=== PATIENT | male | born 1950 | race Caucasian/White ===

== ENCOUNTER 2018-12-18 12:03 | Observation (INO) | payer BC, MEDICARE ==
[2018-12-18] MEDS ORDERED: Albuterol/Ipratropium NEB.SOL* Albuterol 2.5 MG/Ipratropium 0.5 MG 3 ML INH ONE (12:08)
[2018-12-18] MEDS ORDERED: Furosemide IV* 10 MG/ML VIAL (40 MG) IV SLOW PU ONE (12:08)
--- NOTE | 2018-12-18 12:13 | ED ---
Shortness of Breath - HPI Summary HPI Summary: Pt is a 68 y/o male brought in by EMS who presents to the ED c/o SOB. For the past few days hes c/o cough, SOB, and fever. This morning the SOB became worse and he became near-syncopal. Upon EMS arrival pts O2 sat was 94% on room air, he had significant rales, and he had a fever of 100.8 degrees F. Pt was given 1 NTG and was put on CPAP which alleviated his SOB. He also notes hes had edema for the past few months. Pt denies any CP. He states hes been having issues with his health since August 2018. Pt is a smoker. PMHx HTN, HLD, [place], cardiac stents, borderline COPD. He takes daily ASA. - History of Current Complaint Hx Obtained From: Patient, EMS Onset/Duration: Gradual Onset, Lasting Days - 2-3, Worse Since Timing: Constant Dyspnea At: Rest Aggrevating Factors: Nothing Alleviating Factors: EMS Tx - CPAP Associated Signs & Symptoms: Cough (Nonproductive), Fever, Edema - Allergy/Home Medications Allergies/Adverse Reactions: Allergies Allergy/AdvReac Type Severity Reaction Status Date / Time aspirin Allergy Vomiting Verified 12/18/18 12:14 Home Medications: Home Medications Carvedilol TAB* [Coreg TAB*] 3.125 mg PO BID 12/18/18 [History Confirmed ] Clopidogrel TAB* [Plavix TAB*] 75 mg PO DAILY 12/18/18 [History Confirmed ] Finasteride TAB* [Proscar TAB*] 5 mg PO DAILY 12/18/18 [History Confirmed ] Furosemide TAB* [Lasix TAB*] 40 mg PO DAILY 12/18/18 [History Confirmed 12/18/18 ] Nitroglycerin TAB 0.4 MG* 0.4 mg SL Q5M PRN 12/18/18 [History Confirmed 12/18/18 ] Sodium Bicarbonate (ANTACID)* 650 mg PO BID 12/18/18 [History Confirmed 12/18/18 ] Tamsulosin CAP* [Flomax CAP*] 0.8 mg PO DAILY 12/18/18 [History Confirmed ] amLODIPine TAB* [Norvasc 5 mg TAB*] 5 mg PO DAILY 12/18/18 [History Confirmed ] metOLazone [Metolazone] 2.5 mg PO DAILY 12/18/18 [History Confirmed 12/18/18] PMH/Surg Hx/FS Hx/Imm Hx Endocrine/Hematology History: Denies: Hx Diabetes Cardiovascular History: Reports: Hx Hypercholesterolemia, Hx Hypertension, Hx Myocardial Infarction Denies: Hx Congestive Heart Failure Respiratory History: Reports: Hx Chronic Obstructive Pulmonary Disease (COPD) - borderline GI History: Reports: Hx Gastroesophageal Reflux Disease Psychiatric History: Reports: Hx Anxiety - Surgical History Surgery Procedure, Year, and Place: cardiac stents Infectious Disease History: No Infectious Disease History: Denies: Traveled Outside the [place] in Last 30 Days - Family History Known Family History: Positive: Cardiac Disease - [place], Hypertension, Other - [place] - Social History Alcohol Use: None Alcohol Amount: recovering alcoholic Hx Substance Use: No Substance Use Type: Reports: None Hx Tobacco Use: Yes Smoking Status (MU): Current Every Day Smoker Review of Systems Positive: Fever Negative: Chest Pain Positive: Shortness Of Breath, Cough Positive: Edema Positive: Syncope - near All Other Systems Reviewed And Are Negative: Yes Physical Exam - Summary Physical Exam Summary: Appearance: well appearing, no pain distress Skin: warm, dry, reflects adequate perfusion Head/face: normal Eyes: EOMI, VIRGIL ENT: mucous membranes moist Neck: supple, non-tender Respiratory: expiratory wheezes, breath sounds globally diminished, mild- moderate respiratory distress Cardiovascular: regular rate with occasional irregularities of rhythm, pulses symmetrical, 2+ BLE pitting edema, edema of skin of abdomen Abdomen: non-tender, soft Bowel Sounds: present Musculoskeletal: normal, strength/ROM intact Neuro: normal, sensory motor intact, A&Ox3 Triage Information Reviewed: Yes Vital Signs On Initial Exam: Initial Vitals Temp Pulse Resp BP Pulse Ox 99.8 F 95 25 158/111 94 12/18/18 12:04 12/18/18 12:04 12/18/18 12:04 12/18/18 12:04 12/18/18 12:04 Vital Signs Reviewed: Yes Diagnostics - Vital Signs Vital Signs Temp Pulse Resp BP Pulse Ox 12/18/18 12:04 99.8 F 95 25 158/111 94 - Laboratory Result Diagrams: 12/18/18 12:47 12/18/18 12:47 Lab Statement: Any lab studies that have been ordered have been reviewed, and results considered in the medical decision making process. - Radiology CXR Radiology Interpretation Completed By: Radiologist Summary of Radiographic Findings: Density obscuring the right lower lung and to a lesser extent the left lung base could be pneumonia in the correct clinical setting. I recommend a follow-up chest x-ray after an appropriate course of therapy to ascertain resolution. ED physician reviewed radiology report. - CT Chest CT CT Interpretation Completed By: Radiologist Summary of CT Findings: 1. Multifocal infiltrates throughout the lungs more severely affecting the right than the left. Differential diagnosis includes multifocal pneumonia, pneumonitis or inflammatory lung disease. 2. Partially visualized upper abdominal ascites including perihepatic and perisplenic fluid. ED physician reviewed radiology report. - EKG 12:08 Cardiac Rate: NL - 91 bpm EKG Rhythm: Sinus Rhythm ST Segment: Normal Summary of EKG Findings: Nl axis, prolonged QT interval Re-Evaluation - Re-Evaluation First Eval Re-Evaluation Time: 13:07 Change: Improved Comment: Pt is now feeling better. Course/Dx - Course Course Of Treatment: Nurse's notes reviewed. Patient with history of CHF, COPD presents with respiratory difficulty and fever. He has coarse breath sounds with wheezes. He improved with outpatient CPAP provided by EMS. This was discontinued in favor of high velocity nasal insufflation by Vapotherm CPAP. His respiratory work significantly improved on this. A x-ray showed possibility of infiltrate in the right base and this was confirmed on CT of the chest. There is no mass in the chest or significant CHF. He does have significant fluid accumulation in his soft tissues throughout the body. Steroids were also given in addition to antibiotics given mixed bag COPD. - Diagnoses Differential Diagnosis/HQI/PQRI: Positive: COPD Exacerbation, Pneumonia, Pulmonary Embolism, Pulmonary Edema Provider Diagnoses: Acute pneumonia, Chronic renal failure, Respiratory failure, Anasarca - Physician Notifications Discussed Care of Patient With: Ken Puri Time Discussed With Above Provider: 13:15 Instructed by Provider To: Other - Dr. Puri recommends a chest CT. At 14:18 he accepts pt for admission. - Critical Care Time Critical Care Time: 30-74 min - Critical care time is exclusive of separately billable procedures Discharge - Sign-Out/Discharge Documenting (check all that apply): Patient Departure - Admit Patient Received Moderate/Deep Sedation with Procedure: No - Discharge Plan Condition: Guarded Disposition: ADMITTED TO [facility] Referrals: No Primary Care Phys,NOPCP [Primary Care Provider] - - Billing Disposition and Condition Condition: GUARDED Disposition: Admitted to [facility] - Attestation Statements Document Initiated by [place]: Yes Documenting Scribe: Kathryn Chambers Provider For Whom [place] is Documenting (Include Credential): Sarath Gandhi MD Scribe Attestation: Kathryn Moore, scribed for Sarath Gandhi MD on 12/18/18 at 1511. Scribe Documentation Reviewed: Yes Provider Attestation: The documentation as recorded by the Kathryn rodgers accurately reflects the service I personally performed and the decisions made by , Sarath Gandhi MD Status of Scribe Document: Viewed
[2018-12-18 12:57] LABS: Hematocrit 29 % (36-46); Hemoglobin 9.7 g/dL (14.0-18.0); Mean Corpuscular HGB Conc 34 g/dL (31-36); Mean Corpuscular Hemoglobin 33 pg (27-31); Mean Corpuscular Volume 97 fL (80-94); Red Blood Count 2.97 10^6 /uL (4.18-5.48); Red Cell Distribution Width 15 % (10.5-15); White Blood Count 7.1 10^3/uL (3.5-10.8)
[2018-12-18 13:03] LABS: INR 0.8 (0.77-1.02)
[2018-12-18 13:05] LABS: Influenza A Molecular NEGATIVE (Negative); Influenza B Molecular NEGATIVE (Negative)
[2018-12-18 13:17] LABS: ALT 16 U/L (7-52); AST 17 U/L (13-39); Albumin/Globulin Ratio 1.4 (1-3); Alkaline Phosphatase 68 U/L (34-104); Anion Gap 9 mmol/L (2-11); BUN/Creatinine Ratio 13.5 (8-20); Blood Urea Nitrogen 65 mg/dL (6-24); C Reactive Protein 101.62 mg/L (<8.01); CO2 Carbon Dioxide 20 mmol/L (22-32); Calcium 7.9 mg/dL (8.6-10.3); Chloride 110 mmol/L (101-111); EGFR African American 14.6 (>60); EGFR Non-African American 12.1 (>60); Globulin 2.1 g/dL (2-4); Glucose 72 mg/dL (70-100); Potassium 4.3 mmol/L (3.5-5.0); Sodium 139 mmol/L (135-145); Total Protein 5.1 g/dL (6.4-8.9)
[2018-12-18] MEDS ORDERED: methylPREDNISolone 125 MG* 2 ML VIAL IV ONE (13:17)
[2018-12-18 13:20] LABS: ABS Basophils 0 10^3/ul (0-0.2); ABS Eosinophils 0.1 10^3/ul (0-0.6); ABS Lymphocytes 0.8 10^3/ul (1.0-4.8); ABS Monocytes 0.5 10^3/ul (0-0.8); ABS Neutrophils 5.7 10^3/ul (1.5-7.7); ABS Nucleated RBC 0 10^3/ul; Eosinophil % 1.5 %; Lymphocyte % 11.1 %; Mean Platelet Volume 9.7 fL (7.4-10.4); Nucleated Red Blood Cells % 0; Platelet Count 86 10^3/uL (150-450)
[2018-12-18 13:28] LABS: Troponin I 0.18 ng/mL (<0.04)
[2018-12-18] MEDS ORDERED: Azithromycin 500 mg/250 ml 500 MG/250 ML PREMIX.SET IVPB ONE (13:33)
[2018-12-18] MEDS ORDERED: cefTRIAXone(*) 1 GM in NS 0.9% 50 ML* 50 ML IVPB ONE (13:33)
[2018-12-18] MEDS ORDERED: Nitroglycerin TAB 0.4 MG* 0.4 MG TAB SL PRN (15:14)
[2018-12-18] MEDS ORDERED: Albuterol/Ipratropium NEB.SOL* Albuterol 2.5 MG/Ipratropium 0.5 MG 3 ML INH PRN (15:30)
[2018-12-18] MEDS ORDERED: Spiriva Inhaler DEVICE* 1 EACH DEVICE INH SCH (16:00)
[2018-12-18] MEDS ORDERED: Furosemide IV* 10 MG/ML 10 ML VIAL (100 MG) IV ONE ×2 (16:30→20:00)
[2018-12-18 16:34] LABS: Troponin I 0.23 ng/mL (<0.04)
[2018-12-18 16:42] LABS: Magnesium 1.9 mg/dL (1.9-2.7); Phosphorus 4.5 mg/dL (2.5-5.0)
[2018-12-18 16:54] LABS: % Iron Saturation 8 % (15-55); Iron 18 ug/dL (50-212); Rheumatoid Factor 44 IU/mL (<15); Total Iron Binding Capacity 217 mcg/dL (250-450); Transferrin 155 mg/dL (203-362)
[2018-12-18] MEDS ORDERED: Tiotropium CAP.INH* CAP.INH/18 MCG (USE ORDER SET !) INH SCH (17:00)
[2018-12-18 17:14] LABS: Ferritin 511.1 ng/mL (24-336)
[2018-12-18 18:27] LABS: Urine Appearance Clear; Urine Bacteria Absent (Absent); Urine Bilirubin Negative (Negative); Urine Blood 2+ (Negative); Urine Color Straw; Urine Glucose Negative (Negative); Urine Ketones Negative (Negative); Urine Nitrite Negative (Negative); Urine Protein 2+(100 mg/dL) (Negative); Urine Red Blood Cell 3+(>10/hpf) (Absent); Urine Specific Gravity 1.009 (1.010-1.030); Urine Squamous Epithelial Cell Present (Absent); Urine Urobilinogen Negative (Negative); Urine White Blood Cell Absent (Absent)
[2018-12-18 18:35] LABS: Urine Creatinine Concentration 34.15 mg/dL
[2018-12-18 20:35] LABS: Troponin I 0.22 ng/mL (<0.04)
[2018-12-18] MEDS: Sodium Bicarbonate (ANTACID)* 650 MG TAB PO SCH (20:53)
[2018-12-18] MEDS: Heparin VIAL(*) 5000 UNITS/ML VIAL (FIVE THOUSAND) SUBCUT SCH (20:53)
[2018-12-18] MEDS: Nicotine PATCH 14 MG/24 HR* PATCH TRANSDERM SCH (20:53)
[2018-12-18] MEDS ORDERED: Carvedilol TAB* 3.125 MG PO SCH (21:00)
[2018-12-19] MEDS: Mometasone/Formoter 200/5 MDI INH SCH ×2 (00:24→08:17)
--- NOTE | 2018-12-19 00:41 | HP ---
HISTORY AND PHYSICAL: DATE OF ADMISSION: 12/18/18 ADMITTING PROVIDER: Ken Puri MD PRIMARY CARE PHYSICIAN: Dr. Greg Acuña. OUTPATIENT SENIOR WEB SERVICES DEVELOPER: Dr. Geovanna Jain. CHIEF COMPLAINT: Acute on chronic shortness of breath, weakness, insomnia, abdominal pain from dry cough. HISTORY OF PRESENT ILLNESS: Benja French is a 68-year-old male with past medical history of CAD, status post 3 RCA stents in May 2018; chronic kidney disease, stage 4, progressive to stage 5 as of 1 month ago; claudication ; peripheral vascular disease, status post fem-fem bypass left leg stent; renal artery stenosis, status post stent and angiography; current smoker of greater than 50 pack years; GERD; hypertension; heart failure with preserved ejection fraction; COPD. He notably presented to [facility] Emergency Room on 11/16/18 with several weeks of diarrhea worsening of edema, shortness of breath, was found to have worsening kidney function of a creatinine 4.4 from his prior base of 2 to 2.2. He was admitted to the hospital, then left AMA 3 days later on 05/02 with undetermined etiology of his worsening kidney function. He did reportedly have negative ANCAs, low C3, normal C4. There was recommendation for possible renal biopsy. He states he is followed up with Dr. Jain and there has been discussion of his possible need for dialysis, which he does state that he would pursue if necessary, but he is somewhat fed up with the [facility] system having spent he states 10 hours in the emergency room before been seen by a provider last time. He was scheduled actually to see Dr. Jain on 12/20/18. His chief complaint now is progressive shortness of breath, weakness, a dry cough that is causing him some abdominal discomfort, abdominal bloating, worsening lower extremity edema. He states he has been on metolazone for since last week, but has not noticed a difference, he is still having poor urinary output and progressive edema and shortness of breath. He denies any chest pain, fevers or chills. He states he has gained about 20 pounds in the last week. He has not seen his lung doctor in few years and had PFTs around that time as well. He was placed up on CPAP in the field, initially respiratory was recorded as 40 with improvement of this breathing and initial evaluation in the [facility] Emergency Room has included elevated BNP of 857, troponin of 0.18, creatinine of 4.82. A chest x-ray concerning for possible density obscuring the right lower lung and to a lesser extent of the left lung base. It could be a pneumonia in the correct clinical setting, therefore he was started on ceftriaxone and azithromycin. He was given 40 mg of IV Lasix. He has been placed on the Vapotherm 35 L at 28% FiO2 with some improvement in the symptoms, though clearly dyspneic with any minimal exertion on evaluation. VBG was 7.35, pCO2 of 38, pO2 of less than 38, bicarb of 19.7. His EKG demonstrated no acute ischemic changes. No prior to compare. PACs, normal sinus rhythm, normal axis, no ST elevations depressions, no T-wave inversions. Temperature was 99.8 and no leukocytosis. CRP was elevated at 101.6. Flu swabs were negative. He was referred to hospitalist service for acute hypoxic respiratory failure. PAST MEDICAL HISTORY: COPD, current smoker of 50 pack years; CAD, status post 3 stents to the RCA in May 2018; peripheral vascular disease, claudication , status post fem-fem bypass, a known left leg stent, a renal artery stent and need for further angioplasty; GERD; hypertension; chronic kidney disease, stage 4, but over the last month more like stage 5; heart failure with reduced ejection fraction. MEDICATIONS: Include: 1. Metolazone 2.5 mg p.o. daily (for the last week). 2. Finasteride 5 mg p.o. daily. 3. Tamsulosin 0.9 mg p.o. daily. 4. Amlodipine 5 mg p.o. daily. 5. Plavix 75 mg p.o. daily. 6. Furosemide 40 mg p.o. daily. 7. Carvedilol 3.125 mg p.o. b.i.d. 8. Nitroglycerin 0.4 mg sublingual q.5 minutes p.r.n. 9. Albuterol nebulizer and HFA inhalers. 10. Sodium bicarb 650 mg p.o. b.i.d. ALLERGIES: FULL DOSE ASPIRIN gives him some GI, but he tolerates his baby aspirin. FAMILY HISTORY: His mother had brain cancer. Father with myocardial infarction. Brother with coronary bypass surgery, also his sister. SOCIAL HISTORY: The patient is a current smoker over 50 years, currently 1 pack per day. 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 Denies drug use. Medical surrogate is his daughter, Peg Lund. He desires to be a full code. REVIEW OF SYSTEMS: A complete 14-point review of systems is negative except as per HPI. He denies any blood in the stool, headaches. He has had a colonoscopy in the past approximately 4 years ago without concerning findings. He reports this was at [facility]. PHYSICAL EXAMINATION GENERAL APPEARANCE: Some respiratory distress with any minimal exertion, in no acute pain. VITAL SIGNS: Temperature 99.8; pulse rate 92; respiratory rate initially 25, in the field it was 40; satting 94% on 35 L a minute, FiO2 28%; blood pressure initially 158/111, currently 158/108. HEENT: Normocephalic, atraumatic. Pupils equally round and reactive to light. Extraocular motions intact. No scleral icterus. Moist mucous membranes. NECK: Supple, no cervical lymphadenopathy. LUNGS: Without wheezing or rhonchi, slightly diminished sounds diffusely. CARDIOVASCULAR: Regular rate and rhythm. No murmurs, rubs or gallops. ABDOMEN: Distended with some abdominal wall anasarca. No rebound. No guarding. Nontender. Negative Carlos's sign. EXTREMITIES: 2 to 3 + pitting edema bilaterally, pulses intact. NEUROLOGIC: Cranial nerves II through XII grossly intact. Moves all extremities. Strength and sensation is intact. SKIN: Tattoos, some diffuse ecchymosis on the arms. DIAGNOSTIC STUDIES/LAB DATA: White count 7.1, hemoglobin 9.7, hematocrit 29, platelets 86, INR 2.8. VBG; pH 7.35, pCO2 of 38, bicarb 19.7. Sodium 139, potassium 4.3, chloride 110, carbon dioxide 20, BUN 65, creatinine 4.82, glucose 72, lactic acid 1.6, calcium 7.9, total bili 0.8, AST 17, ALT 16, alk phos 68, troponin 0.18. CRP 101.6. BNP 857, albumin 3.0, influenza A and B negative. Imaging: Chest x-ray demonstrated density obscuring the right lower lung and to a lesser extent the left lung base, could be pneumonia in the correct clinical setting. Recommend to follow up chest x-ray after appropriate course of therapy to ascertain resolution. EKG demonstrated a normal sinus rhythm, PACs, normal axis, normal intervals, no ST elevations or depressions, heart rate 91. ASSESSMENT AND PLAN: Benja French is a 68-year-old male with past history of vasculopathies including coronary artery disease, status post right coronary artery stents recently; claudication; peripheral vascular disease; renal artery stenosis, status post stents; chronic obstructive pulmonary disease with current and longstanding smoking greater than 50 years; hypertension; worsening kidney function over at least the last month, presenting with worsening edema, shortness of breath, belly distention, evidence of anasarca and volume overload on exam. A chest x-ray was inability to exclude a pneumonia, although he denies any fevers, chills, and his cough is nonproductive. I suspect the majority of his problems are his renal failure of undetermined etiology and we will try to obtain records from Dr. Geovanna Jain, who he had been scheduled to see on 12/20/18 and there had been some discussion about possible need for dialysis, his discharge summary from last month indicates a possible need for renal biopsy. Reportedly, his workup has included some negative ANCA test, a low C3 and a normal C4 complement levels. I have discussed the case with Dr. Greg Russo, who will see the patient in consultation tomorrow, who recommends increasing his diuretic dose to 120 mg given his degree of renal dysfunction. I am adding on phosphorus and magnesium levels. Continue him on the sodium bicarb for now. Likely will potentially need metolazone supplementation. We will try to wean him off supplemental oxygen as able. He may need consideration for dialysis in the coming days to weeks without improvement in his symptoms. For his inability to have rule out on chest x-ray pulmonary pneumonia infiltrates, we will add on Strep pneumoniae antigen, Legionella antigen, sputum culture, follow up blood cultures, continue ceftriaxone and azithromycin. For his chronic obstructive pulmonary disease, we will give him a nicotine patch and start him on albuterol inhalers q.4 hours p.r.n., he is status post 125 mg Solu- Medrol in the ED, continue 40 mg IV q.12 hours. He does not sound particularly a bronchospastic on exam and he is not currently wheezing, although he did get the Solu-Medrol and albuterol already. I am starting Spiriva and Dulera. It will be interesting they know his pulmonary function test from 2 to 3 years ago, has not seen a lung doctor in that time, obviously smoking cessation would be critical to his ability stay out of the hospital. For his elevated troponin, we are going to continue to do that q.4 hours. He has stayed chest pain free with no ischemic changes. His degree of kidney dysfunction is likely contributing to that level. We will keep him on telemetry. For DVT prophylaxis, heparin 5000 mg t.i.d. For his hypertension and coronary artery disease history, continue aspirin, Plavix and is carvedilol 3.125 mg p.o. b.i.d., amlodipine 5 mg daily. For his benign prostatic hyperplasia, continue his tamsulosin and Proscar. He can eat heart healthy, nephro diet. He is a full code. His medical surrogate is daughter, Peg Lund. [id number]/[facility] #: [id number] JAY
[2018-12-19] MEDS: Heparin VIAL(*) 5000 UNITS/ML VIAL (FIVE THOUSAND) SUBCUT SCH ×2 (05:52→14:41)
[2018-12-19 06:14] LABS: ABS Basophils 0 10^3/ul (0-0.2); ABS Eosinophils 0 10^3/ul (0-0.6); ABS Lymphocytes 0.3 10^3/ul (1.0-4.8); ABS Monocytes 0.2 10^3/ul (0-0.8); ABS Neutrophils 5.7 10^3/ul (1.5-7.7); ABS Nucleated RBC 0 10^3/ul; Eosinophil % 0 %; Hematocrit 25 % (36-46); Hemoglobin 8.7 g/dL (14.0-18.0); Lymphocyte % 4.7 %; Mean Corpuscular HGB Conc 35 g/dL (31-36); Mean Corpuscular Hemoglobin 33 pg (27-31); Mean Corpuscular Volume 96 fL (80-94); Mean Platelet Volume 9.7 fL (7.4-10.4); Nucleated Red Blood Cells % 0.1; Platelet Count 76 10^3/uL (150-450); Red Blood Count 2.63 10^6 /uL (4.18-5.48); Red Cell Distribution Width 15 % (10.5-15); White Blood Count 6.1 10^3/uL (3.5-10.8)
[2018-12-19 06:38] LABS: EGFR African American 13.2 (>60); EGFR Non-African American 10.9 (>60); Potassium 4.3 mmol/L (3.5-5.0)
[2018-12-19] MEDS ORDERED: Metolazone TAB* 5 MG PO ONE (07:30)
[2018-12-19] MEDS ORDERED: Furosemide IV* 10 MG/ML 10 ML VIAL (100 MG) IV ONE (08:00)
[2018-12-19] MEDS ORDERED: methylPREDNISolone SOD 40 MG* 1 ML VIAL IV SCH (08:00)
[2018-12-19] MEDS ORDERED: Finasteride TAB* 5 MG PO SCH (09:00)
[2018-12-19] MEDS ORDERED: Tamsulosin CAP* 0.4 MG PO SCH (09:00)
[2018-12-19] MEDS ORDERED: Carvedilol TAB* 6.25 MG PO SCH (09:00)
[2018-12-19] MEDS ORDERED: Clopidogrel TAB* 75 MG PO SCH (09:00)
[2018-12-19] MEDS ORDERED: amLODIPine TAB* 5 MG PO SCH (09:00)
[2018-12-19] MEDS: Nicotine PATCH 14 MG/24 HR* PATCH TRANSDERM SCH (09:10)
[2018-12-19] MEDS: Sodium Bicarbonate (ANTACID)* 650 MG TAB PO SCH ×3 (09:11→14:41)
[2018-12-19] MEDS ORDERED: cefTRIAXone(*) 1 GM in NS 0.9% 50 ML* 50 ML IVPB SCH (14:00)
[2018-12-19] MEDS ORDERED: Azithromycin IV(*) 500 MG in NS 0.9% 250 ML* 250 ML IVPB SCH ×2 (15:00→17:00)
[2018-12-19 16:08] VITALS: BP 184/96
--- NOTE | 2018-12-20 01:50 | DS ---
DISCHARGE SUMMARY: DATE OF ADMISSION: 12/18/18 DATE OF DISCHARGE: 12/19/18 ADMITTING PROVIDER: Ken Puri MD PRIMARY CARE PHYSICIAN: Dr. Greg Acuña. CONSULTING SUPERVISOR ENGRAVING: Dr. Greg Russo. OUTPATIENT SUPERVISOR ENGRAVING: Dr. Geovanna Jain. CHIEF COMPLAINT: Acute shortness of breath, weakness, dry cough. PRINCIPAL DIAGNOSIS: Acute hypoxic respiratory failure in setting of volume of overload decompensated renal failure as well as evidence for Legionella and Streptococcal pneumoniae. HISTORY OF PRESENT ILLNESS AND HOSPITAL COURSE: Benja French is a 68-year-old male with past medical history of CAD, status post 3 RCA stents in May 2018; chronic kidney disease, stage 4, but progressive to stage 5 as of 1 month ago; peripheral vascular disease, status post fem-fem bypass and left leg stent ; renal artery stenosis, status post stent and angiography; current smoker of greater than 50 pack years; GERD; hypertension; heart failure with preserved ejection fraction; COPD. Please see H and P of Ken Puri for full details, but briefly, he had a recent history of presenting to [facility] on 11/16/18 with several weeks of diarrhea, worsening edema, shortness of breath, who was found to have worsening of his kidney function to creatinine of 4.4 from his previous baseline of between 2 and 2.2. He was admitted, but left against medical advice 3 days later on 11/19/18, before etiology of his worsening kidney function could be completely determined. Per that discharge summary, he did have negative ANCA studies, a low C3 complement level, normal C4 complement level. There was recommendation for possible renal biopsy. He has since followed up with Dr. Jain. There has been discussion for possible need for dialysis, which he does state that he would pursue if necessary. In fact, he has a further appointment to see Dr. Jain in 2 days on 12/20/18. He is presenting now with chief complaint of progressive shortness of breath, weakness and dry cough causing him some of the abdominal discomfort, abdominal bloating and worsening lower extremity edema. He had been taking metolazone for the last week to help supplement his Lasix 40 mg daily, but still having poor urinary output, progressive edema and progressive shortness of breath. He denied any chest pain, fevers or chills. He states he gained approximately 20 pounds in the last week. He denied ever seeing a lung doctor within the last few years. He was placed on CPAP in the field. His initial respiratory rate was 40. His followup BNP at [facility] Emergency Room is 857, troponin of 0.18, creatinine of 4.82. Chest x-ray was concerning for possible density obscuring the right lower lobe, a lesser extent of the left lung base. It can be compatible with pneumonia in the correct clinical setting. He was started on ceftriaxone and azithromycin and initially given 40 mg of IV Lasix by the emergency room. He was also placed on Vapotherm 35 L at 28% FiO2 with some improvement in the symptoms, but clearly dyspneic with any minimal exertion. He had a VBG with pH 7.35, pCO2 of 38, pO2 of less than 38, bicarbonate 19.7. EKG demonstrated no acute ischemic changes, but with PACs, normal sinus rhythm, normal axis. He was afebrile. CRP was elevated to 101.6. Flu swabs were negative. He was referred to the hospitalist service for acute hypoxic respiratory failure. Dr. Russo of Nephrology was spoken to on phone and recommended increasing his diuretic to 120mg IV (after little response to 40mg IV in ED) given his degree of kidney dysfunction. He started to put out more urine after that and was able to wean off the Vapotherm. He was admitted to a telemetry bed. His creatinine increased to 5.27 on hospital day #2. BUN went up to 74 from 65. His troponins peaked at 0.23. Additional evaluation in the emergency room included a CT of the chest, which impression was, 1. Multifocal infiltrate throughout the lungs, most severely affecting the right than the left. Differential diagnosis include multifocal pneumonia, pneumonitis or inflammatory lung disease. 2. Partially visualized upper abdominal ascites including perihepatic and sloan - stomach fluid. He had Streptococcal pneumoniae urine antigen return positive along with Legionella urine antigen return positive. Blood cultures negative x1 day. Dr. Russo met the patient next day and again recommended rechallenge with 120 mg of IV Lasix and he got metolazone 5 mg 30 minutes prior to that and was able to put out 650 cc of urine by mid day and he weaned off all supplemental oxygen , feeling much better, bloating in the stomach and abdominal wall anisarca had resolved. His pitting edema had decreased from between 2 to 3 initially to 1+. Dr. Russo recommended given his improvement and appointment the next day with his home supervisor plating and point assembly, Dr. Geovanna Jain that he be discharged to follow up with Dr. Jain with strong consideration to initiate temporary dialysis catheter placement that is expected to be needed within the next days to weeks timeframe. Of note, additional evaluation included checking rheumatoid factor, which was elevated at 44. His ESR was elevated to 61. He had JOLLY, CCP, antidouble stranded DNA, and Duarte IgG antibody drawn, but still pending. At the time of discharge, he was noted to be hypertensive 180s/90s on hospital day #2 and his Coreg was increased from 3.125 to 12.5 mg b.i.d. Of note, he had also been started on Spiriva, Dulera, given 125 mg of Solu- Medrol by the emergency room physician and given DuoNeb p.r.n. Further workup included iron panel with iron 18 mcg/dL, iron sat low at 8%, ferritin elevated at 511.1 consistent with anemia of chronic disease. Many medication changes were recommended as below. DISCHARGE MEDICATIONS: Include: 1. Amlodipine 5 mg daily. 2. Azithromycin 500 mg p.o. daily for 8 more days (total of 10-day course). 3. Carvedilol 12.5 mg p.o. b.i.d. (increased from 3.125 mg p.o. b.i.d.). 4. Plavix 75 mg daily. 5. Proscar 5 mg p.o. daily. 6. Metolazone 2.5 mg p.o. daily (30min before his loop diuretic dosing) 7. Prevacid 30 mg po daily. 8. Dulera 2 puffs inhaled b.i.d. (new). 9. Nicotine patch 14 mg daily (new). 10. Nitroglycerin 0.4 mg sublingual q.5 minutes p.r.n. 11. Sodium bicarbonate 650 mg was increased from b.i.d. to t.i.d. per Dr. Russo's recommendations. 12. Spiriva 1 capsule inhaled q.24 hours (new). 13. Tamsulosin 0.8 mg p.o. daily. 14. Torsemide 60 mg p.o. daily (30 minutes after the metolazone, this is replacing his former Lasix 40 mg daily.) FOLLOWUP: Please follow up with Dr. Geovanna Jain day after discharge on 05/02 at 9 a.m. as it was rescheduled. He should follow up with Dr. Greg Acuña, his PCP, within 7 days of discharge. A BMP should be drawn within the next week and as stated he likely will need to initiate hemodialysis in coming days or weeks. The above studies of connective tissue disease is pending as above. DIET: Heart healthy, end-stage kidney disease diet. DISPOSITION: Home. CONDITION: Improved. TIME SPENT ON DISCHARGE: Fifty minutes. [id number]/[facility] [place] #: [id number] JAY
[2018-12-21 16:27] LABS: JO-1 Antibody <0.2 U; RNP Antibody, IgG <0.2 U; SS-A/Ro Antibody <0.2 U; SS-B/La Antibody <0.2 U; Sm (Smith) IgG Antibody <0.2 U
[2018-12-21 17:59] LABS: Sm (Smith) IgG Antibody <0.2 U
== END 2018-12-19 18:17 | disposition home or self-care (01) ==
LOC: ED 12:03 → ICU 15:03 → INTOOBSV 15:03 → EDHOLD 18:24 → MEDTELE 19:39
PROVIDERS: ADMIT Internal Medicine; ATTEND Internal Medicine
DX: J96.01 Acute respiratory failure with hypoxia (principal); N19 Unspecified kidney failure; J13 Pneumonia due to Streptococcus pneumoniae; I10 Essential (primary) hypertension; I25.2 Old myocardial infarction; R06.02 Shortness of breath; N40.0 Benign prostatic hyperplasia without lower urinary tract symptoms; I25.10 Atherosclerotic heart disease of native coronary artery without angina pectoris; R53.1 Weakness; R05 Cough; F17.210 Nicotine dependence, cigarettes, uncomplicated; Z95.9 Presence of cardiac and vascular implant and graft, unspecified; R60.1 Generalized edema; Z79.899 Other long term (current) drug therapy; Z79.82 Long term (current) use of aspirin
CPT/HCPCS: 36415; 71045; 71250; 80048; 80053; 81003; 81015; 82570; 82728; 82803; 83540; 83550; 83605; 83735; 83880; 84100; 84300; 84484; 84540; 85025; 85060; 85610; 85652; 86038; 86140; 86200; 86225; 86235; 86431; 87040; 87899; 93005; 94640; 96365; 96366; 96375; 96376; 99285; A9270-GY; G0378; J0456; J0696; J1644; J1940; J2920; J2930

== ENCOUNTER 2019-01-18 15:22 | Emergency (ER) | payer MEDICARE ==
--- NOTE | 2019-01-18 16:22 | ED ---
HPI Chest Pain - HPI Summary HPI Summary: Pt. is a 68 y.o male who presents to the ER for right side rib pain x 2 weeks. Pt. states that he rolled over in bed two weeks ago and developed pain to his right lower ribs. Pt. states that pain has become worse over the last few days. Pain is worse with movement and with inspiration. Pt. denies fever, cough, CP, SOB, abd. pain, leg swelling. Pt. with hx of HTN, CHF, COPD, CAD, CKD on dialysis. Symptoms are moderate in severity. - History of Current Complaint Chief Complaint: EDChestWallPain Time Seen by Provider: 01/18/19 16:00 Hx Obtained From: Patient Pain Intensity: 10 - Additional Pertinent History Primary Care Physician: ROLLY - Allergy/Home Medications Allergies/Adverse Reactions: Allergies Allergy/AdvReac Type Severity Reaction Status Date / Time aspirin Allergy Vomiting Verified 12/18/18 12:14 PMH/Surg Hx/FS Hx/Imm Hx Previously Healthy: Yes Endocrine/Hematology History: Denies: Hx Diabetes Cardiovascular History: Reports: Hx Congestive Heart Failure, Hx Hypercholesterolemia, Hx Hypertension, Hx Myocardial Infarction Respiratory History: Reports: Hx Chronic Obstructive Pulmonary Disease (COPD) - borderline Denies: Hx Asthma GI History: Reports: Hx Gastroesophageal Reflux Disease Sensory History: Denies: Hx Contacts or Glasses, Hx Hearing Aid Opthamlomology History: Denies: Hx Contacts or Glasses Psychiatric History: Reports: Hx Anxiety - Surgical History Surgery Procedure, Year, and Place: cardiac stents Infectious Disease History: No Infectious Disease History: Denies: Traveled Outside the [place] in Last 30 Days - Family History Known Family History: Positive: Cardiac Disease - RI, Hypertension, Other - [place] - Social History Occupation: Retired Lives: Alone Alcohol Use: None Alcohol Amount: recovering alcoholic Hx Substance Use: No Substance Use Type: Reports: None Hx Tobacco Use: Yes Smoking Status (MU): Current Every Day Smoker Review of Systems Constitutional: Negative Negative: Fever, Chills Cardiovascular: Negative Negative: Palpitations, Chest Pain Respiratory: Negative Negative: Shortness Of Breath, Cough Gastrointestinal: Negative Negative: Abdominal Pain, Vomiting, Diarrhea Genitourinary: Negative Negative: dysuria, flank pain Positive: Other - Right sided rib pain Skin: Negative Neurological: Negative Negative: Headache, Weakness, Paresthesia, Numbness, Syncope All Other Systems Reviewed And Are Negative: Yes Physical Exam Triage Information Reviewed: Yes Vital Signs On Initial Exam: Initial Vitals Temp Pulse Resp BP Pulse Ox 98.1 F 70 18 181/106 98 01/18/19 15:25 01/18/19 15:25 01/18/19 15:25 01/18/19 15:25 01/18/19 15:25 Vital Signs Reviewed: Yes Appearance: Positive: Well-Appearing - Pt. sitting on side of bed in NAD. Pleasant. Skin: Positive: Warm, Dry Head/Face: Positive: Normal Head/Face Inspection Eyes: Positive: Normal, EOMI, VIRGIL Neck: Positive: Supple, Nontender Respiratory/Lung Sounds: Positive: Clear to Auscultation, Breath Sounds Present. Negative: Rales, Rhonchi, Wheezes Cardiovascular: Positive: Normal, RRR Abdomen Description: Negative: CVA Tenderness (R) Musculoskeletal: Positive: Other - Mild tenderness to right lower lateral rib cage. No rash, ecchymosis, or edema. Neurological: Positive: Normal, CN Intact II-III Psychiatric: Positive: Affect/Mood Appropriate Diagnostics - Vital Signs Vital Signs Temp Pulse Resp BP Pulse Ox 01/18/19 15:25 98.1 F 70 18 181/106 98 - Laboratory Result Diagrams: 01/18/19 16:34 01/18/19 16:34 Lab Statement: Any lab studies that have been ordered have been reviewed, and results considered in the medical decision making process. Chest Pain Course/Dx - Course Course Of Treatment: Pt. is a 68 y.o male who presents to the ER for right sided rib pain x 2 weeks. Pt. afebrile. BP 181/106 which pt. states is normal for him. O2 saturation is 98% on RA which is normal. Pain is worse with inspiration. Given sxs and hx will obtain cardiac workup including ddimer. Rib xray ordered. ECG done at 1623 shows a sinus rhythm of 60 bpm, normal axis, no STEMI, similar to prior tracing. Rib/cxr per radiology: IMPRESSION: QUESTIONABLE NONDISPLACED FRACTURE OF THE RIGHT SEVENTH RIB. RECOMMEND CORRELATION WITH. SITE OF PAIN. THERE IS NO APPRECIABLE PNEUMOTHORAX. Ddimer elevated >800. Case discussed with Dr. Galvez. Pt. not receiving dialysis until . Will consult nephrology, to see if dialysis can be moved til tomorrow so pt. can have CTA today. Case discussed with Dr. Kevin who gives okay to do CTA tonight and she will get him set up for dialysis tomorrow either inpt. or outpt. based on CTA results. Pt. will be signed out to ARTURO Estrada for CTA results and disposition. - Chest Pain Differential Diagnosis/HQI/PQRI: Acute RI, Aortic Aneurysm, Chest Wall, GI Disease, Lower Respiratory Infection, Pulmonary Edema, Pulmonary Embolism - Diagnoses Provider Diagnoses: Pleuritic chest pain Discharge - Sign-Out/Discharge Documenting (check all that apply): Sign-Out Patient Signing out patient TO: Juan Cardona Patient Received Moderate/Deep Sedation with Procedure: No - Discharge Plan Referrals: Domenico COKER,Greg Ibrahim [Primary Care Provider] -
[2019-01-18 16:44] LABS: ABS Eosinophils 0.1 10^3/ul (0-0.6); ABS Lymphocytes 0.5 10^3/ul (1.0-4.8); ABS Monocytes 0.6 10^3/ul (0-0.8); ABS Neutrophils 6.8 10^3/ul (1.5-7.7); Eosinophil % 1.2 %; Hematocrit 33 % (42-52); Hemoglobin 10.9 g/dL (14.0-18.0); Lymphocyte % 5.8 %; Mean Corpuscular HGB Conc 34 g/dL (31-36); Mean Corpuscular Hemoglobin 34 pg (27-31); Mean Corpuscular Volume 101 fL (80-94); Mean Platelet Volume 8.8 fL (7.4-10.4); Platelet Count 137 10^3/uL (150-450); Red Blood Count 3.24 10^6 /uL (4.18-5.48); Red Cell Distribution Width 17 % (10.5-15); White Blood Count 8.1 10^3/uL (3.5-10.8)
[2019-01-18 16:53] LABS: INR 0.88 (0.82-1.09)
[2019-01-18 17:02] LABS: ALT 13 U/L (7-52); AST 14 U/L (13-39); Albumin 3.8 g/dL (3.2-5.2); Albumin/Globulin Ratio 1.7 (1-3); Alkaline Phosphatase 91 U/L (34-104); Anion Gap 7 mmol/L (2-11); BUN/Creatinine Ratio 6.6 (8-20); Blood Urea Nitrogen 16 mg/dL (6-24); CO2 Carbon Dioxide 25 mmol/L (22-32); Calcium 8.6 mg/dL (8.6-10.3); Chloride 104 mmol/L (101-111); EGFR Non-African American 26.5 (>60); Globulin 2.3 g/dL (2-4); Glucose 125 mg/dL (70-100); Potassium 4.9 mmol/L (3.5-5.0); Sodium 136 mmol/L (135-145); Total Protein 6.1 g/dL (6.4-8.9)
[2019-01-18 17:07] LABS: Troponin I 0.04 ng/mL (<0.04)
[2019-01-18] MEDS ORDERED: Morphine 10 MG/ML VIAL (1 ml) IV ONE (17:55)
[2019-01-18] MEDS ORDERED: Ondansetron INJ* 2 MG/ML VIAL IV ONE (17:55)
[2019-01-18] MEDS ORDERED: Iodixanol* (CONTRAST) 320 MG/ML 100 ML SDV IV ONE (17:58)
[2019-01-18 20:38] VITALS: BP 200/108
== END 2019-01-18 20:54 | disposition home or self-care (01) ==
LOC: ED 15:22
DX: S22.31XA Fracture of one rib, right side, initial encounter for closed fracture (principal); X58.XXXA Exposure to other specified factors, initial encounter; R07.89 Other chest pain; R94.31 Abnormal electrocardiogram [ECG] [EKG]; I11.0 Hypertensive heart disease with heart failure; I50.9 Heart failure, unspecified; I25.2 Old myocardial infarction; E78.00 Pure hypercholesterolemia, unspecified; K21.9 Gastro-esophageal reflux disease without esophagitis; F41.9 Anxiety disorder, unspecified; F17.210 Nicotine dependence, cigarettes, uncomplicated; Z88.6 Allergy status to analgesic agent
CPT/HCPCS: 36415; 71275; 80053; 84484; 85025; 85379; 85610; 93005; 96374; 96375; 99284; J2270; J2405; Q9967

== ENCOUNTER 2019-01-28 08:35 | Day surgery (SDC) | payer MEDICARE ==
--- NOTE | 2019-01-28 03:50 | HP ---
HISTORY AND PHYSICAL: DATE OF ADMISSION: 01/28/19 CHIEF COMPLAINT: 1. Extruding tunnelled dialysis catheter. 2. End-stage renal disease. HISTORY OF PRESENT ILLNESS: The patient is a 68-year-old male recently diagnosed with end-stage renal disease and was started on hemodialysis at [facility] via a tunnelled right subclavian catheter. Because of patient's preference, he wanted to have his dialysis done at [facility], and after a dialysis, the patient was noted to have the catheter Macho cuff outside the exit, meaning that the catheter although being functional, it was out of position, and with the Macho cuff out, was a potential for infection. For this reason, the patient is being admitted to the hospital to have the subclavian catheter removed and have it replaced by a new one, likely an internal jugular access. PAST MEDICAL HISTORY: The patient's past medical history includes hypertension , end-stage renal disease, COPD, history of heavy smoking, peripheral vascular disease that includes intermittent claudication, coronary artery disease with placement of 2 cardiac stents within the last year in May 2018, history of aortic valve disease. MEDICATIONS: His current medications include: 1. Aspirin 81 mg a day. 2. Atenolol 50 mg daily. 3. Atorvastatin 80 mg p.o. daily. 4. Carvedilol 3.125 mg p.o. daily. 5. Citalopram 40 mg. 6. Finasteride 5 mg p.o. daily. 7. Folic acid 1 mg p.o. daily. 8. Furosemide 40 mg p.o. daily. 9. Ipratropium bromide/albuterol sulfate inhaler 1 to 2 puffs as needed. 10. Methotrexate 2.5 mg p.o. daily. 11. Metolazone 2.5 mg p.o. daily. 12. Nitroglycerin 0.4 mg tablet under the tongue as needed. 13. Omeprazole 40 mg p.o. daily. 14. Pantoprazole 40 mg p.o. daily. 15. Prednisone 10 mg p.o. daily. 16. Ranitidine 300 mg p.o. daily. 17. Sodium bicarbonate 350 mg tablets p.o. 3 times a day. 18. Tamsulosin 0.4 mg p.o. daily. 19. Trazodone 50 mg p.o. as needed. 20. Triamcinolone acetonide cream 0.1% as needed. ALLERGIES: The patient denies any history of allergies. FAMILY HISTORY: The patient's family history is remarkable for father and mother with cancer, diabetes, heart disease, hypertension, and stroke. PERSONAL HISTORY: The patient is a heavy smoker and has been doing so for approximately 50 years. He is currently smoking approximately 10 cigarettes a day. The patient is retired from work. REVIEW OF SYSTEMS: The patient's review of systems is contributory for coronary artery disease, hypertension, end-stage renal disease, loss of hearing , arthritis, gastric reflux disease, peripheral vascular disease with intermittent claudication, COPD, and tobacco abuse. PHYSICAL EXAMINATION GENERAL: The patient's height is 72 inches, weight 178 pounds. VITAL SIGNS: Blood pressure is 129/67, pulse of 62, respirations of 18. HEAD AND NECK: Reveals no neck nodes or masses. There is a right subclavian port exiting in the upper part of the chest. The holding Macho cuff is out of the exit incision and supported by sutures. LUNGS: Clear to auscultation bilaterally. HEART: Regular with mild systolic murmur. ABDOMEN: Unremarkable. EXTREMITIES: The upper extremities reveal excellent palpable pulses at the axillary, brachial, radials, and ulnars. On the right side, the patient has an abrasion from a fall in the upper arm, there are multiple areas of ecchymosis from the patient being on aspirin and Plavix. The Plavix was stopped recently approximately 3 days ago. Lower extremity examination: No evidence of gangrene. Pulses, femoral and popliteal are palpable, but weak. Dorsalis pedis and posterior tibial are weak. No gangrene in the lower extremities. DIAGNOSTIC IMPRESSION: End-stage renal disease, currently undergoing hemodialysis via a tunnelled catheter. PLAN: The plan is for admission of the patient to remove the current tunnelled catheter and proper placement in order to continue hemodialysis. The patient is also staged to return to the operating room for definitive placement of an arteriovenous fistula. [id number]/[facility] #: [id number] MTDD
[~2019-01-28 08:35] MED LIST: Buffered Lidocaine 1% SYRIN* 1 ML/SYRINGE INTRADERM ONE; Lactated Ringers 1000 ML Bag* 1,000 ML IV SCH
[2019-01-28] MEDS ORDERED: Buffered Lidocaine 1% SYRIN* 1 ML/SYRINGE INTRADERM ONE (08:50)
[2019-01-28] MEDS ORDERED: ceFAZolin 2 GM PREMIX in ORs 2 GM/50 ML BAG IVPB ONE (08:50)
[2019-01-28] MEDS ORDERED: Midazolam* 1 MG/ML 2 ML VIAL (2 MG) ONE (10:27)
[2019-01-28] MEDS ORDERED: Lidocaine 1% INJ* 10 MG/ML 30 ML SDV ONE (10:46)
[2019-01-28] MEDS ORDERED: Bupivacaine 0.25% EPI 200,000* 30 ML SDV ONE (10:46)
[2019-01-28] MEDS ORDERED: Heparin VIAL(*) 5000 UNITS/ML VIAL (FIVE THOUSAND) ONE (10:46)
[2019-01-28] MEDS ORDERED: Heparin 2 UNITS/ML IVPREMIX* 0 ML IV ONE (11:09)
[2019-01-28] MEDS ORDERED: Propofol* 10 MG/ML 20 ML BTL ONE (11:50)
[2019-01-28] MEDS ORDERED: Silver Sulfadiazine 1%* 20 GM ONE (11:53)
[2019-01-28] MEDS ORDERED: Phenylephrine 40 MCG/ML SYRINGE ONE (11:55)
[2019-01-28] MEDS ORDERED: NS 0.9% ONE (12:00)
[2019-01-28] MEDS ORDERED: HEPARIN ONE (12:00)
[2019-01-28] MEDS ORDERED: hydrALAZINE IV* 20 MG/ML VIAL ONE (12:49)
[2019-01-28] MEDS ORDERED: hydrALAZINE IV* 20 MG/ML VIAL IV SLOW PU ONE (12:50)
[2019-01-28 13:35] VITALS: BP 163/87
--- NOTE | 2019-01-28 15:27 | OP ---
DATE OF OPERATION: 01/28/19 - [facility] DATE OF : 48 SURGEON: Elías Manuel MD ANESTHESIA: Local plus MAC. PRE-OP DIAGNOSIS: Malfunctioning, exposed right tunnel dialysis catheter. POST-OP DIAGNOSIS: Malfunctioning, exposed right tunnel dialysis catheter. OPERATIVE PROCEDURE: Replacement of tunnel dialysis catheter. ESTIMATED BLOOD LOSS: Less than 20 cc. DESCRIPTION OF PROCEDURE: The patient was taken to the procedure room. He was placed in supine position. He was prepped and draped in the usual sterile fashion after proper patient identification and site of surgery. Exposure of the right upper chest was done where the previous BioFlo dialysis catheter was placed. The Macho cuff had extruded and the tip was pulled back and this could not be pushed back in because of possibility of infection. For this reason, the catheter was exchanged. After the patient was prepped and draped in the usual sterile fashion and proper time-out, under sedation, lidocaine 1% was used to infiltrate right proximal to the exit of the catheter. A transverse incision was performed. Incision was carried down through skin, subcutaneous tissue. We proceeded to expose the catheter, which was then clamped proximally and distally. It was then divided. We proceeded to advance an 0.038 guidewire via the catheter under fluoroscopy guidance and once the wire was in the atrium, we proceeded to pull back the old catheter. We then proceeded to advance the slit sheath over the wire under direct fluoroscopic guidance. Once this was completed, we then proceeded to advance the BioFlo catheter over the wire into the right atrium. After this was in the selected position, we then proceeded to flush the catheter to check for function and aspiration and flushing both and they appeared to be excellent. The position was in the right atrium and we then proceeded to slit the sheath and once the sheath was in place, we then proceeded to secure the Macho cuff deeper into the tissues and the catheter with 4-0 Vicryl suture. At this point, the skin was closed with subcutaneous 4-0 Vicryl suture. Once again, the catheter was then checked for flow both aspiration and flushing, which both appeared to be adequate. Once this was completed, we then proceeded to tack the remaining of the catheter to the skin with interrupted 5-0 Prolene sutures. The distal end of the old catheter was then removed by releasing the sutures. After this was completed, a Tegaderm dressing was applied. At the end of the procedure, we changed the dressings on skin abrasions that the patient had on the arms applying Silvadene to the area. This was present preoperatively. Once this was completed, the patient was then taken in good condition to recovery room. [id number]/[facility] #: [id number] JAY
== END 2019-01-28 13:36 | disposition home or self-care (01) ==
LOC: OR 08:35
PROVIDERS: ATTEND Surgery
DX: T82.42XA Displacement of vascular dialysis catheter, initial encounter (principal); Y83.1 Surgical operation with implant of artificial internal device as the cause of abnormal reaction of the patient, or of later complication, without mention of misadventure at the time of the procedure; N18.6 End stage renal disease; Z99.2 Dependence on renal dialysis; I12.9 Hypertensive chronic kidney disease with stage 1 through stage 4 chronic kidney disease, or unspecified chronic kidney disease; I73.9 Peripheral vascular disease, unspecified; I25.10 Atherosclerotic heart disease of native coronary artery without angina pectoris; Z95.5 Presence of coronary angioplasty implant and graft; Z79.82 Long term (current) use of aspirin; Z72.0 Tobacco use; J44.9 Chronic obstructive pulmonary disease, unspecified
CPT/HCPCS: 76000; A9270-GY; C1750; J0360; J0690; J1642; J1644; J2250; J2704

== ENCOUNTER 2019-02-25 08:26 | Day surgery (SDC) | payer MEDICARE ==
--- NOTE | 2019-01-31 14:44 | HP ---
ADDENDUM TO HISTORY AND PHYSICAL AND UPDATE: DATE OF ADMISSION: 02/04/19 ADDENDUM: The patient is a 68-year-old male undergoing hemodialysis for end- stage renal disease via a right subclavian tunneled catheter. The patient was recently admitted for replacement of the tunneled hemodialysis catheter and he is being admitted to the hospital for creation of an arteriovenous fistula, specifically a right brachiocephalic fistula under local anesthesia. The patient's recent history of abrasions in the arms, they have completely healed, they are dry. There are no active infections. There are still areas of ecchymosis and the patient is taking Plavix and aspirin. The Plavix has been stopped for the procedure. PHYSICAL EXAMINATION GENERAL: He is alert and oriented, in no acute distress. LUNGS: Clear to auscultation bilaterally. HEART: Regular with very mild systolic murmur. ABDOMEN: No ascites. EXTREMITY EXAMINATION: No edema, but areas of ecchymosis from previous fall. The tunneled catheter appears to be working well and the site reveals no evidence of infection. The patient again is being admitted for creation of an arteriovenous fistula. [id number]/[facility] #: [id number] [facility]ARE SYSTEMRadha
--- NOTE | 2019-02-23 08:30 | HP ---
HISTORY AND PHYSICAL: DATE OF ADMISSION: 02/25/19 ADDENDUM: The patient was most recently admitted on 01/28/19 and this is an update to that history and physical. ATTENDING PROVIDER: Dr. Manuel * (DICTATED BY MARNI LUONG NP) CHIEF COMPLAINT: End-stage renal disease. HISTORY OF PRESENT ILLNESS: Benja French is a 68-year-old male who was admitted on to same day surgery on 01/28/19 for replacement of a dialysis catheter. The patient is now returning for right arm brachiocephalic anastomosis. PAST MEDICAL HISTORY: 1. Hypertension. 2. End-stage renal disease. 3. COPD. 4. History of heavy smoking. 5. Peripheral vascular disease. 6. Intermittent claudication. 7. Coronary artery disease with placement of two cardiac stents in May 2018. 8. Aortic valve disease. MEDICATIONS: 1. Aspirin 81 mg daily. 2. Atenolol 50 mg daily. 3. Atorvastatin 80 mg p.o. daily. 4. Carvedilol 3.125 mg p.o. daily. 5. Citalopram 40 mg daily. 6. Finasteride 5 mg p.o. daily. 7. Folic acid 1 mg p.o. daily. 8. Furosemide 40 mg p.o. daily. 9. Ipratropium bromide. 10. Albuterol sulfate inhaler 1 to 2 puffs as needed. 11. Methotrexate 2.5 mg p.o. daily. 12. Metolazone 2.5 mg p.o. daily. 13. Nitroglycerin 0.4 mg tablet under the tongue as needed. 14. Omeprazole 40 mg p.o. daily. 15. Pantoprazole 40 mg p.o. daily. 16. Prednisone 10 mg p.o. daily. 17. Ranitidine 300 mg p.o. daily. 18. Sodium bicarbonate 350 mg p.o. t.i.d. 19. Tamsulosin 0.4 mg p.o. daily. 20. Trazodone 50 mg p.o. as needed. 21. Triamcinolone acetonide 0.1% as needed. ALLERGIES: None. FAMILY HISTORY: Father and mother with cancer, diabetes, heart disease, hypertension and stroke. PERSONAL HISTORY: He is a heavy smoker and he has been doing so for approximately 50 years. He smokes approximately 10 cigarettes a day and he is retired. PHYSICAL EXAMINATION GENERAL: Benja French is a 68-year-old male. VITAL SIGNS: He is 72 inches, weighs approximately 178. HEENT: Within normal limits. HEART: S1 and S2, regular rate and rhythm. ABDOMEN: Soft, nontender. The patient has a right tunnel dialysis port in place and this is an update from his previous H and P. IMPRESSION: End-stage renal disease status post right tunnel dialysis catheter. PLAN/RECOMMENDATIONS: Same-day surgery admission to Dr. Manuel's service on for right arm brachiocephalic anastomosis. MARNI LUONG NP [id number]/[facility] #: [id number] JAY
[~2019-02-25 08:26] MED LIST changes: +Famotidine IV* 10 MG/ML 2 ML (20 mg) IV ONE; +NS 0.9% 500 ML* 500 ML IV SCH
[2019-02-25] MEDS ORDERED: Buffered Lidocaine 1% SYRIN* 1 ML/SYRINGE INTRADERM ONE (08:45)
[2019-02-25] MEDS ORDERED: Famotidine IV* 10 MG/ML 2 ML (20 mg) ONE (08:45)
[2019-02-25] MEDS ORDERED: ceFAZolin 2 GM in NS PREMIX(*) 2 GM/100 ML BAG IVPB ONE (08:46)
[2019-02-25] MEDS ORDERED: Bupivacaine 0.25% W/EPI* 10 ML SDV ONE (09:09)
[2019-02-25] MEDS ORDERED: Heparin DIALYSIS ONLY(*) 1,000 UNITS/ML VIAL ONE ×2 (09:09→11:07)
[2019-02-25] MEDS ORDERED: Lidocaine 1% INJ* 10 MG/ML 30 ML SDV ONE (09:09)
[2019-02-25] MEDS ORDERED: fentaNYL* 50 MCG/ML 2 ML VIAL (100 MCG VIAL) ONE (09:40)
[2019-02-25] MEDS ORDERED: Midazolam* 1 MG/ML 5 ML VIAL (5 MG) ONE (09:40)
[2019-02-25] MEDS ORDERED: Ondansetron INJ* 2 MG/ML VIAL ONE (09:44)
[2019-02-25] MEDS ORDERED: DiMENhydriNATE IV* 50 MG/ML VIAL ONE (09:44)
[2019-02-25] MEDS ORDERED: Dexamethasone IV* 4 MG/ML 1 ML (4 MG) ONE (09:44)
[2019-02-25] MEDS ORDERED: DiMENhydriNATE IV* 50 MG/ML VIAL IV PUSH PRN (11:26)
[2019-02-25] MEDS ORDERED: Naloxone* 0.4 MG/ML 1 ML VIAL IV PRN (11:26)
[2019-02-25] MEDS ORDERED: oxyCODONE TAB* 5 MG TAB PO PRN (11:26)
[2019-02-25] MEDS ORDERED: Acetaminophen TAB* 325 MG PO PRN (11:26)
--- NOTE | 2019-02-25 12:46 | OP ---
DATE OF OPERATION: 02/25/19 - [facility] DATE OF : 48 SURGEON: Elías Manuel MD FOUNDRY FINISHER: Leti Mcfarlane NP ANESTHESIA: Local plus MAC. PRE-OP DIAGNOSIS: End-stage renal disease. POST-OP DIAGNOSIS: End-stage renal disease. OPERATIVE PROCEDURE: Creation of right brachiocephalic arteriovenous fistula. ESTIMATED BLOOD LOSS: None. DESCRIPTION OF PROCEDURE: The patient was taken to the procedure room. He was placed in a supine position. Proper identification of the patient's site of surgery was done. Under sedation, the patient was prepped and draped in the usual sterile fashion exposing the right arm. After this was done and after proper time- out, we then proceeded to infiltrate lidocaine 1% to the antecubital area. A transverse incision was then performed. The incision was carried down through the skin, subcutaneous tissue. The cephalic vein was identified and this was dissected in a cephalad direction as well as distal. This was then encircled in vessel loops. We then proceeded to expose the brachial artery, which was as well encircled in vessel loops. We then proceeded to give the patient 3000 units of heparin and after this was completed , the branches of the cephalic vein were then ligated off proximally and distally, clipped and divided. After this was done, the very end of the cephalic vein in the antecubital fossa was then ligated proximally, divided after placing a [place]il clamp to the vein itself in a more proximal location. After this was done, the tip of the vein was then spatulated with a Lake scissors and once this was completed, we then proceeded to cross-clamp the brachial artery distally and then proximally. We then proceeded to perform an arteriotomy fashioned to the size of the venotomy itself. Once this was completed, we then proceeded to place stay sutures at the heel and at the toe and then on each side of the carbone of the artery. By using AnastoClip of medium size, we then proceeded to perform the anastomosis by closing the gaps in between the stay sutures using the AnastoClip in a circular manner until a complete circumferential was completed. After this was done, the distal arterial clamp was then released. Flow established into the graft. Minor oozing was corrected by using 6-0 Prolene and after this was done, no bleeding was noted from the anastomosis, it was checked all around and it was in good condition and after this was done, all the stay sutures were cut. Excellent flow was noted into the cephalic vein and after this was completed, the subcutaneous tissue was closed with 4-0 Vicryl sutures interrupted and the skin was closed with the subcuticular 5-0 Monocryl. Steri-Strips were applied to the skin. The patient was then taken in good conditions to recovery room. [id number]/[facility] #: [id number] JAY
[2019-02-25 12:52] VITALS: BP 189/96
== END 2019-02-25 12:51 | disposition home or self-care (01) ==
LOC: OR 08:26
PROVIDERS: ATTEND Surgery
DX: I12.9 Hypertensive chronic kidney disease with stage 1 through stage 4 chronic kidney disease, or unspecified chronic kidney disease (principal); N18.6 End stage renal disease; J44.9 Chronic obstructive pulmonary disease, unspecified; I25.10 Atherosclerotic heart disease of native coronary artery without angina pectoris; Z95.5 Presence of coronary angioplasty implant and graft; I73.9 Peripheral vascular disease, unspecified; F17.210 Nicotine dependence, cigarettes, uncomplicated; Z79.01 Long term (current) use of anticoagulants; Z99.2 Dependence on renal dialysis
CPT/HCPCS: C1760; J0690; J1100; J1240; J1644; J2250; J2405; J3010

== ENCOUNTER 2019-02-26 05:39 | Emergency (ER) | payer MEDICARE ==
[2019-02-26] MEDS ORDERED: Morphine 10 MG/ML VIAL (1 ml) IM ONE (06:16)
[2019-02-26] MEDS ORDERED: Morphine 4 MG/ML VIAL (1 ml) 4 MG/ML VIAL IM ONE (06:24)
[2019-02-26] MEDS ORDERED: Ondansetron ODT TAB* 4 MG PO ONE (06:26)
--- NOTE | 2019-02-26 06:38 | ED ---
Upper Extremity Pain - HPI Summary HPI Summary: Pt here w/ Rt UE pain, swelling and finger coolness s/p Rt A/C fistula placement yesterday with Dr. Berg. Swelling started at 22:00 at site and has spread throughout limb - coolness in hand/fingers started at 3:00am. Admits coolness seems to be better since 3am however pain is 8/10 despite taking 3 extra strength tylenol prior to arrival. Denies injury to extremity and no d/c from surgical site. Denies fever, chills, BECK, nausea, vomiting, ab pain, CP, SOB. Does not use opiates at home for routine pain control but reports oxycodone works well when he has had it. NOTE: struggling with BP - typically 180's systolic past few months - working with provider to better control. Denies BECK, CP, change in vision. Had stress test last week which was normal. H/o stent placement s/p ID. Takes all medications as directed. Has catheter for dialysis - due to go this morning at 11:00am. - History of Current Complaint Chief Complaint: EDExtremityUpper Stated Complaint: "R ARM COLD AND SWOLLEN AFTER SURG" PER PT Time Seen by Provider: 02/26/19 05:47 Hx Obtained From: Patient, Family/Certified Tower Climber - daughter - Allergies/Home Medications Allergies/Adverse Reactions: Allergies Allergy/AdvReac Type Severity Reaction Status Date / Time aspirin Allergy Vomiting Verified 02/25/19 08:55 PMH/Surg Hx/FS Hx/Imm Hx Previously Healthy: Yes Endocrine/Hematology History: Reports: Hx Anemia Denies: Hx Bone Marrow Disease, Hx Diabetes, Hx Sickle Cell Disease, Hx Thyroid Disease Cardiovascular History: Reports: Hx Congestive Heart Failure, Hx Coronary Artery Disease - 3 RCA stents 05/2018, Hx Hypercholesterolemia, Hx Hypertension, Hx Myocardial Infarction, Hx Peripheral Vascular Disease - Claudication,Fem-Fem bypass,2 stents left leg, stent right kidney Denies: Other Cardiovascular Problems/Disorders Respiratory History: Reports: Hx Chronic Obstructive Pulmonary Disease (COPD) - borderline, Other Respiratory Problems/Disorders - 50 pack year smoker, current 1PPD Denies: Hx Asthma GI History: Reports: Hx Gastroesophageal Reflux Disease Denies: Other GI Disorders History: Reports: Other Problems/Disorders - Enlarged prostate, Renal artery stenosis Musculoskeletal History: Reports: Hx Arthritis - Neck and back Denies: Other Musculoskeletal History Sensory History: Denies: Hx Contacts or Glasses, Hx Hearing Aid Opthamlomology History: Denies: Hx Contacts or Glasses Neurological History: Reports: Other Neuro Impairments/Disorders - Numbness and tingling in bilateral legs Psychiatric History: Reports: Hx Anxiety, Hx Depression - Surgical History Surgery Procedure, Year, and Place: cardiac stents Hx Anesthesia Reactions: No Infectious Disease History: No Infectious Disease History: Denies: Traveled Outside the [place] in Last 30 Days - Family History Known Family History: Positive: Cardiac Disease - ID, Hypertension, Other - [place] - Social History Alcohol Use: None Alcohol Amount: recovering alcoholic Hx Substance Use: No Substance Use Type: Reports: None Hx Tobacco Use: Yes Smoking Status (MU): Current Every Day Smoker Type: Cigarettes Amount Used/How Often: 1 ppd- smoking for 50 years Have You Smoked in the Last Year: Yes Review of Systems Constitutional: Negative Eyes: Negative ENT: Negative Cardiovascular: Negative Respiratory: Negative Gastrointestinal: Negative Positive: no symptoms reported Positive: Edema Skin: Other - bruising along B/L UE's Neurological: Negative Psychological: Other - concerned All Other Systems Reviewed And Are Negative: Yes Physical Exam Triage Information Reviewed: Yes Vital Signs On Initial Exam: Initial Vitals Temp Pulse Resp BP Pulse Ox 97 F 69 20 188/92 100 02/26/19 05:41 02/26/19 05:41 02/26/19 05:41 02/26/19 05:41 02/26/19 05:41 Vital Signs Reviewed: Yes Appearance: Positive: Well-Appearing, Well-Nourished, Pain Distress - appears mildly uncomfortable, anxious Skin: Positive: Warm, Skin Color Reflects Adequate Perfusion, Dry - blood crusted steristrip over surgical wound site which is dry and warm to touch but not febrile; Rt and LT UE's are equal in temp with gross touch; diffuse ecchymosis B/L; Rt UE with mild edema compared to Lt - this is mostly in arm/ forearm, very mild edema in hand - phalanges are equal B/L Head/Face: Positive: Normal Head/Face Inspection Eyes: Positive: EOMI Respiratory/Lung Sounds: Positive: Breath Sounds Present Cardiovascular: Positive: RRR, Pulses are Symmetrical in both Upper and Lower Extremities - radial pulses + 2 equal B/L; thrill palpated over fistula on Rt A/ C fossa, cap refill < 2 secs in phalanges B/L Abdomen Description: Positive: Soft Musculoskeletal: Positive: Strength/ROM Intact Neurological: Positive: Normal, Sensory/Motor Intact, Alert, Oriented to Person Place, Time, CN Intact II-III Psychiatric: Positive: Anxious Diagnostics - Vital Signs Vital Signs Temp Pulse Resp BP Pulse Ox 02/26/19 05:41 97 F 69 20 188/92 100 - Laboratory Lab Statement: Any lab studies that have been ordered have been reviewed, and results considered in the medical decision making process. Re-Evaluation - Re-Evaluation First Eval Change: Improved Course/Dx - Course Course Of Treatment: Spoke w/ Dr. Berg - no concerns at this time - sx pt is having are typical aftermath of procedure, especially since he is a vasculopath and still smoking. Reassured pt and provided with pain control. Reviewed danger s/sx of when to return to ED. Dr. Berg encouraged f/u Thursday as opposed to if sx persist. Pt and daughter voice understanding and agree w/ plan. Will attend dialysis later this morning as directed. - Diagnoses Provider Diagnoses: Right arm pain, Hypertension Discharge - Sign-Out/Discharge Documenting (check all that apply): Patient Departure Patient Received Moderate/Deep Sedation with Procedure: No - Discharge Plan Condition: Stable Disposition: HOME Prescriptions: Naloxone Nasal [place]* [Narcan Nasal [place]] 4 mg NASAL ONCE PRN #1 nasal.spr PRN Reason: Narcotic Reversal oxyCODONE/Acetamin 5/325 MG* [Percocet 5/325 TAB*] 1 tab PO Q6H PRN #10 tab MDD 4 PRN Reason: Pain Patient Education Materials: Hypertension (ED) Referrals: Elías Manuel MD [Medical Doctor] - Domenico COKER,Greg Ibrahim [Primary Care Provider] - Additional Instructions: Your fistula appears to be intact. Follow-up with Dr. Berg Thursday (call office to schedule appointment). If danger signs/symptoms present sooner, return to ED. In the meantime, you may take pain medication percocet (oxyocodone with tylenol ) as directed for pain. Discuss use with pharmacist as well as how to use narcan in the event you have an accidental overdose. NOTE: your blood pressure was elevated today. This may be due to your pain however it is important that you follow-up with your PCP for better control. - Billing Disposition and Condition Condition: STABLE Disposition: Home
[2019-02-26] MEDS ORDERED: oxyCODONE/Acetamin 5/325 MG* TAB PO ONE (07:55)
[2019-02-26 08:09] VITALS: BP 196/92
== END 2019-02-26 08:47 | disposition home or self-care (01) ==
LOC: ED 05:39
DX: M79.601 Pain in right arm (principal); I11.0 Hypertensive heart disease with heart failure; I50.9 Heart failure, unspecified; J44.9 Chronic obstructive pulmonary disease, unspecified; Z95.5 Presence of coronary angioplasty implant and graft; Z88.6 Allergy status to analgesic agent; F17.210 Nicotine dependence, cigarettes, uncomplicated
CPT/HCPCS: 96372; 99283; A9270-GY; J2270

== ENCOUNTER 2019-02-28 14:18 | Day surgery (SDC) | payer MEDICARE ==
[2019-02-28] MEDS ORDERED: Buffered Lidocaine 1% SYRIN* 1 ML/SYRINGE INTRADERM ONE ×2 (14:58→16:18)
[2019-02-28] MEDS ORDERED: Lidocaine 1% INJ* 10 MG/ML 30 ML SDV ONE ×2 (15:03→17:40)
[2019-02-28] MEDS ORDERED: Heparin DIALYSIS ONLY(*) 1,000 UNITS/ML VIAL ONE (15:03)
[2019-02-28] MEDS ORDERED: fentaNYL* 50 MCG/ML 2 ML VIAL (100 MCG VIAL) ONE (16:16)
[2019-02-28] MEDS ORDERED: Midazolam* 1 MG/ML 2 ML VIAL (2 MG) ONE (16:16)
[2019-02-28] MEDS ORDERED: fentaNYL* 50 MCG/ML 2 ML VIAL (100 MCG VIAL) IV PRN (16:19)
[2019-02-28] MEDS ORDERED: Naloxone* 0.4 MG/ML 1 ML VIAL IV PRN (16:19)
[2019-02-28] MEDS ORDERED: Levalbuterol 0.63MG/3ML NEB* UNIT OF USE INH PRN (16:19)
[2019-02-28] MEDS ORDERED: oxyCODONE/Acetamin 5/325 MG* TAB PO PRN (16:19)
[2019-02-28] MEDS ORDERED: Acetaminophen TAB* 325 MG PO PRN (16:19)
[2019-02-28] MEDS ORDERED: Ondansetron INJ* 2 MG/ML VIAL IV PRN (16:19)
[2019-02-28] MEDS ORDERED: DiMENhydriNATE IV* 50 MG/ML VIAL IV PUSH PRN (16:19)
[2019-02-28] MEDS ORDERED: diPHENhydraMINE IV* 50 MG/ML 1 ml VIAL (BENADRYL) IV PRN (16:19)
[2019-02-28] MEDS ORDERED: Propofol* 10 MG/ML 20 ML BTL ONE ×2 (16:24→17:00)
[2019-02-28] MEDS ORDERED: Lidocaine 2% PF * 5 ML VIAL ONE ×2 (16:24→17:00)
[2019-02-28] MEDS ORDERED: NS 0.9% 1000 ML** 1,000 ML IV SCH (16:30)
[2019-02-28] MEDS ORDERED: Famotidine IV* 10 MG/ML 2 ML (20 mg) ONE (16:32)
[2019-02-28] MEDS ORDERED: ceFAZolin 2 GM in NS PREMIX(*) 2 GM/100 ML BAG IVPB ONE (16:39)
[2019-02-28 19:00] VITALS: BP 181/94
--- NOTE | 2019-02-28 20:21 | HP ---
HISTORY AND PHYSICAL: ADDENDUM: DATE OF SURGERY: 02/28/19 PRE-OP DIAGNOSIS: Malfunctioning obstructive right subclavian catheter obstructing the outflow of the fistula created 72 hours ago. The patient came in complaining of edema. No significant incisional pain.Edema of the right arm after the fistula was created, likely from obstruction of the outflow from the large size dialysis catheter , although the patient is a large individual, it is possible that there may be stenosis of the subclavian vein, and for this reason, the catheter is occupying the outflow of the right arm, and after creating a fistula, the venous system, has produced venous hypertension edema. For this reason, the catheter needs to be removed and replaced on the left internal jugular or left subclavian. The evaluation on the ultrasound of the left side of the neck reveals both the internal jugular and the subclavian are patent to be used. The plan then is removal of the right subclavian tunneled dialysis catheter and replacement with a left internal jugular dialysis catheter. [id number]/[facility] #: [id number] JAY
--- NOTE | 2019-02-28 22:54 | OP ---
DATE OF OPERATION: 02/28/19 - [facility] DATE OF : 48 SURGEON: Elías Manuel MD ANESTHESIA: Local plus MAC. PRE-OP DIAGNOSIS: Malfunctioning of the right subclavian dialysis catheter with obstruction of the venous outflow to the right arm. POST-OP DIAGNOSIS: Malfunctioning of the right subclavian dialysis catheter with obstruction of the venous outflow to the right arm. OPERATIVE PROCEDURE: 1. Removal of right subclavian dialysis catheter. 2. Placement of left internal jugular tunneled dialysis catheter, specifically BioFlo DuraMax, length 32 cm. ESTIMATED BLOOD LOSS: Approximately 40 cc. INDICATIONS: The patient has end-stage renal disease that had a radiocephalic fistula created 72 hours ago. The patient started to complain of swelling at approximately 24, 48 hours after the surgery. He was seen today with edema of the right arm, likely related to arterialized venous outflow system with likely outflow stenosis at the subclavian, aggravated by the presence of a dialysis catheter into his subclavian vein. For this reason, it was felt that the subclavian catheter needed to be removed in order to allow adequate outflow of the right arm in the venous system. Prior to surgery, an ultrasound of the left side of the neck revealed both the internal jugular and subclavian were patent and usable. DESCRIPTION OF PROCEDURE: The patient was taken to the procedure room. He was placed in the supine position. He underwent proper identification of patient and site of surgery. He was prepped and draped in the usual sterile fashion after time-out was done. Ultrasound was used to locate the left internal jugular. It was felt that the catheter needed to be removed after the placement of the first catheter because this venous flow was arterialized by the catheter and it would take longer time and pressure to prevent any possible bleeding. We proceeded to access the internal jugular under direct ultrasound guidance after infiltrating the skin at the base of the left neck with lidocaine 1%. Using a micropuncture kit under direct ultrasound guidance, the internal jugular was accessed. This was followed by an 0.018 guidewire. Subsequently, once it was confirmed into the innominate and superior vena cava, we then proceeded to retrieve the needle and exchange it for a 5-Australian catheter under direct ultrasound guidance. Once this was used, we then proceeded to use an 0.035 guidewire that comes in a kit for the tunneled dialysis catheter. We used a BioFlo DuraMax, length of 32 cm. Proper measurements for entrance of the catheter were done and after this was done, we then proceeded to introduce an 0.035 guidewire into the 5-Australian catheter. The catheter was removed and wire was confirmed to be in the right atrium. After this was done, we then proceeded to lengthen the incision at the level of the neck. We then proceeded to make the incision for the entrance at the level of the chest, infiltrated lidocaine 1% from the entrance to the access in the neck in order to create a tunnel. The dialysis catheter was then hooked up to the tunneler and it was brought out from the chest area up to under the skin to the incision in the neck and positioned in such a way to avoid a kink. We then proceeded to dilate the tracts under direct fluoroscopic guidance starting with a smaller dilator, following with a larger dilator and subsequently the dilator in split sheath were advanced under direct fluoroscopic guidance and after this was done, the wire was used to introduce into the catheter, which came out into the venous port. Once the wire was in place, it was then advance down into the sheath and after the sheath was split, the tip of the catheter was positioned in the superior vena cava. The wire was removed. The catheter was then flushed with saline. We then proceeded to test aspiration and irrigation of the catheter forcefully several times with excellent backflow and flushing. No kinks were noted in the catheter and at this point, we then proceeded to place 2.4 and 2.3 cc of heparin into the catheter ports in order to prevent clotting and after this, the catheter was then sutured to the skin with 4-0 Prolene in different places. We then proceeded to close the neck incision with a subcutaneous 4-0 Vicryl suture and Steri-Strips and dressings were placed in this area. The patient's head was then brought up into a Rose's position. Lidocaine 1% was used to infiltrate at the site of the entrance on the right side of the chest. Dissection was carried around the catheter until the [place] cuff was completely released from subcutaneous tissue. At this point, the catheter was then pulled back slowly and gently and pressure was applied directly right under the clavicle. This was done uninterrupted for 15 minutes since this vein flow is arterialized. After this was done, no bleeding was noted from the tunnel tract. We then proceeded to apply pressure to the area and the small opening on the skin was closed with Steri-Strips. The patient tolerated the procedure well and he was taken in good condition to the recovery room. [id number]/[facility] #: [id number] MTDD
== END 2019-02-28 19:01 | disposition home or self-care (01) ==
LOC: OR 14:18
PROVIDERS: ATTEND Surgery
DX: T82.898A Other specified complication of vascular prosthetic devices, implants and grafts, initial encounter (principal); N18.6 End stage renal disease; J44.9 Chronic obstructive pulmonary disease, unspecified; I73.9 Peripheral vascular disease, unspecified; I25.10 Atherosclerotic heart disease of native coronary artery without angina pectoris; I12.0 Hypertensive chronic kidney disease with stage 5 chronic kidney disease or end stage renal disease; F17.210 Nicotine dependence, cigarettes, uncomplicated; Z79.82 Long term (current) use of aspirin; X58.XXXA Exposure to other specified factors, initial encounter
CPT/HCPCS: 71045; 76000; C1750; J0690; J1644; J2250; J2704; J3010

== ENCOUNTER 2019-03-07 09:28 | Day surgery (SDC) | payer MEDICARE ==
[2019-03-07] MEDS ORDERED: Morphine 4 MG/ML VIAL (1 ml) 4 MG/ML VIAL IV ONE ×2 (10:05→11:14)
[2019-03-07] MEDS ORDERED: Ondansetron INJ* 2 MG/ML VIAL IV ONE (10:05)
--- NOTE | 2019-03-07 10:15 | ED ---
Upper Extremity Pain - HPI Summary HPI Summary: The patient is a 68 y/o M presenting to [facility] with a chief complaint of gradual onset swelling, erythema, and pain the RUE starting two weeks ago after RUE fistula placement. The procedure was done at [facility] [place] by Dr. Manuel, vascular surgery. He notes that he had follow-up appointments but was advised that his symptoms were normal. The patient reports that the swelling has been present since immediately after the operation, but it has worsened in the last three days with spreading to the elbow, hand, and digits after getting a dialysis treatment the day before. He additionally reports clear leakage in the arm that is currently resolved. He denies fever, chills, erythema of eyes, sore throat, CP, SOB, cough, abdominal pain, N/V, dysuria, hematuria, rash, and dizziness. The arm is painful to touch with 9/10 rating in severity. He has a Reed port in the left anterior chest. He gets dialysis twice a week usually without complication. Hx of anemia CHF, CAD, HLD, HTN, UT, peripheral vascular disease, COPD. Surgical hx of cardiac stents. FHx of cardiac disease (UT), HTN, cancer. Current every day smoker, no EtOH, no substance abuse. - History of Current Complaint Chief Complaint: EDExtremityUpper Stated Complaint: RY ARM SWOLLEN PER PT Hx Obtained From: Patient Mechanism Of Injury: Other - pt had fistula placed in right arm two weeks ago and symptoms increasing since Onset/Duration: Started Weeks Ago - two, Still Present Timing: Constant, Lasting Weeks Severity Initially: Moderate Severity Currently: Severe Pain Location: Arm - right, Elbow - right, Forearm - right, Wrist - right, Hand - right, Finger - right Aggravating Factor(s): Other - touch Alleviating Factor(s): Nothing Associated Signs & Symptoms: Positive: Other - POSITIVE: swelling, erythema, and pain the RUE; NEGATIVE: fever, chills, erythema of eyes, sore throat, CP, SOB, cough, abdominal pain, N/V, dysuria, hematuria, rash, dizziness - Allergies/Home Medications Allergies/Adverse Reactions: Allergies Allergy/AdvReac Type Severity Reaction Status Date / Time No Known Drug Allergies Allergy Unknown See Comment Verified 03/07/19 09:46 PMH/Surg Hx/FS Hx/Imm Hx Endocrine/Hematology History: Reports: Hx Anemia Denies: Hx Bone Marrow Disease, Hx Diabetes, Hx Sickle Cell Disease, Hx Thyroid Disease Cardiovascular History: Reports: Hx Congestive Heart Failure, Hx Coronary Artery Disease - 3 RCA stents 05/2018, Hx Hypercholesterolemia, Hx Hypertension, Hx Myocardial Infarction, Hx Peripheral Vascular Disease - Claudication,Fem-Fem bypass,2 stents left leg, stent right kidney Denies: Other Cardiovascular Problems/Disorders Respiratory History: Reports: Hx Chronic Obstructive Pulmonary Disease (COPD) - borderline, Other Respiratory Problems/Disorders - 50 pack year smoker, current 1PPD Denies: Hx Asthma GI History: Reports: Hx Gastroesophageal Reflux Disease Denies: Other GI Disorders History: Reports: Other Problems/Disorders - Enlarged prostate, Renal artery stenosis Musculoskeletal History: Reports: Hx Arthritis - Neck and back Denies: Other Musculoskeletal History Sensory History: Denies: Hx Contacts or Glasses, Hx Hearing Aid Opthamlomology History: Denies: Hx Contacts or Glasses Neurological History: Reports: Other Neuro Impairments/Disorders - Numbness and tingling in bilateral legs Psychiatric History: Reports: Hx Anxiety, Hx Depression - Surgical History Surgery Procedure, Year, and Place: cardiac stents,. RUE fistula placement by Dr. Manuel in February 2019 Hx Anesthesia Reactions: No Infectious Disease History: No Infectious Disease History: Denies: Traveled Outside the [place] in Last 30 Days - Family History Known Family History: Positive: Cardiac Disease - UT, Hypertension, Other - [place] - Social History Alcohol Use: None Alcohol Amount: recovering alcoholic Hx Substance Use: No Substance Use Type: Reports: None Hx Tobacco Use: Yes Smoking Status (MU): Current Every Day Smoker Type: Cigarettes Amount Used/How Often: 1 ppd- smoking for 50 years Have You Smoked in the Last Year: Yes Review of Systems Negative: Fever, Chills Negative: Erythema Negative: Sore Throat Negative: Chest Pain Negative: Shortness Of Breath, Cough Negative: Abdominal Pain, Vomiting, Nausea Negative: dysuria, hematuria Positive: Myalgia - in the RUE, Edema - in the RUE with leakage that has resolved Positive: Other - erythema in the RUE. Negative: Rash Neurological: Other - NEGATIVE: dizziness All Other Systems Reviewed And Are Negative: Yes Physical Exam - Summary Physical Exam Summary: Constitutional: Well-developed, Well-nourished, Alert. (-) Distressed Skin: Warm, Dry HENT: Normocephalic; Atraumatic Eyes: Conjunctiva normal Neck: Musculoskeletal ROM normal neck. (-) JVD, (-) Stridor, (-) Tracheal deviation Cardio: Rhythm regular, rate normal, Heart sounds normal; Intact distal pulses; The pedal pulses are 2+ and symmetric. Radial pulses are 2+ and symmetric. (-) Murmur Pulmonary/Chest wall: Effort normal. (-) Respiratory distress, (-) Wheezes, (-) Rales Abd: Soft, (-) tenderness, (-) Distension, (-) Guarding, (-) Rebound Musculoskeletal: Entire RUE up to shoulder is edematous and tents, pain with active and passive movement at the right wrist, distal pulses are present, fistula has no palpable thrill, the right arm is exquisitely tender, (+) Edema Lymph: (-) Cervical adenopathy Neuro: Alert, Oriented x3 Psych: Mood and affect Normal Triage Information Reviewed: Yes Vital Signs On Initial Exam: Initial Vitals Temp Pulse Resp BP Pulse Ox 97.4 F 70 20 119/65 98 03/07/19 09:43 03/07/19 09:43 03/07/19 09:43 03/07/19 09:43 03/07/19 09:43 Vital Signs Reviewed: Yes Diagnostics - Vital Signs Vital Signs Temp Pulse Resp BP Pulse Ox 03/07/19 09:43 97.4 F 70 20 119/65 98 - Laboratory Result Diagrams: 03/07/19 10:21 03/07/19 10:21 Lab Statement: Any lab studies that have been ordered have been reviewed, and results considered in the medical decision making process. - EKG 1037 Cardiac Rate: NL - 61 BPM EKG Rhythm: Sinus Rhythm Summary of EKG Findings: No STEMI. Re-Evaluation - Re-Evaluation First Eval Re-Evaluation Time: 12:30 Comment: I discussed Dr. Manuel's consult and plan, as well as admission with the patient. Course/Dx - Course Course Of Treatment: The patient is a 68 y/o M presenting to [facility] with a chief complaint of gradual onset swelling, erythema, and pain the RUE starting two weeks ago after RUE fistula placement at [facility] [place] by Dr. Manuel, vascular surgery with follow-up appointments. Swelling has been present since immediately after the operation, but it has worsened in the last three days with spreading to the elbow, hand, and digits after getting a dialysis treatment the day before. Reed port in the left anterior chest with dialysis twice a week. He additionally reports clear leakage in the arm that is currently resolved. He denies fever, chills, erythema of eyes, sore throat, CP, SOB, cough, abdominal pain, N/V, dysuria, hematuria, rash, and dizziness. The arm is painful to touch with 9/10 rating in severity. Hx of anemia CHF, CAD, HLD, HTN, UT, peripheral vascular disease, COPD. Surgical hx of cardiac stents. FHx of cardiac disease ( [place]), HTN, cancer. Current every day smoker, no EtOH, no substance abuse. Upon physical exam, the patient exhibits entire RUE up to shoulder is edematous and tents, pain with active and passive movement at the right wrist, distal pulses are present, fistula has no palpable thrill, and the right arm is exquisitely tender. In the ED course, the patient was administered Zofran and Morphine for pain. Blood work reveals RBC of 3.28, hgb of 10.6, hct of 32, MCV of 98, MCH of 32, plt count of 127, abs neuts of 8.6, abs lymphs of 0.6, abs monos of 0.9, sodium of 134, chloride of 99, anion gap of 12, BUN of 55, creatinine to 5.41, glucose of 116, ALT of 5, troponin of 0.06, and total protein of 6.0. EKG reveals NSR at 61 BPM. At 1200, Dr. Manuel, vascular surgery, is in the operating room and is unable to come to the ED at this time. His plan is admission of the patient to reverse the AV fistula on the right side. I discussed the case with Dr. Cristobal, hospitalist, at 1240, and she agrees with admission for the patient by Dr. Manuel. The patient is diagnosed with peripheral edema and fistula malfunction. He agrees with and understands the plan for admission. - Diagnoses Provider Diagnoses: Peripheral edema, Malfunction of arteriovenous dialysis fistula - Physician Notifications Discussed Care of Patient With: Elías Manuel - vascular surgery Time Discussed With Above Provider: 12:00 Instructed by Provider To: Other - Dr. Manuel is in the operating room and is unable to see the patient in the ED now; his plan is to have the patient admitted for reversal of the AV fistula. I discussed the case with Dr. Cristobal, hospitalist, and she agrees with admission by Dr. Manuel at 1240. Discharge - Sign-Out/Discharge Documenting (check all that apply): Patient Departure - Patient is accepted for admission by Dr. Manuel. Patient Received Moderate/Deep Sedation with Procedure: No - Discharge Plan Condition: Stable Disposition: ADMITTED TO [facility] - Billing Disposition and Condition Condition: STABLE Disposition: Admitted to [facility] - Attestation Statements Document Initiated by Scribe: Yes Documenting Scribe: Raquel Nair Provider For Whom Scribe is Documenting (Include Credential): Dr. Aaron Zimmer MD Scribe Attestation: I, Raquel Nair, scribed for Dr. Aaron Zimmer MD on 03/07/19 at 1241. Status of Scribe Document: Ready
[2019-03-07 10:32] LABS: ABS Basophils 0.1 10^3/ul (0-0.2); ABS Eosinophils 0.5 10^3/ul (0-0.6); ABS Lymphocytes 0.6 10^3/ul (1.0-4.8); ABS Monocytes 0.9 10^3/ul (0-0.8); ABS Neutrophils 8.6 10^3/ul (1.5-7.7); Eosinophil % 4.8 %; Hematocrit 32 % (42-52); Hemoglobin 10.6 g/dL (14.0-18.0); Lymphocyte % 5.5 %; Mean Corpuscular HGB Conc 33 g/dL (31-36); Mean Corpuscular Hemoglobin 32 pg (27-31); Mean Corpuscular Volume 98 fL (80-94); Mean Platelet Volume 9.1 fL (7.4-10.4); Platelet Count 127 10^3/uL (150-450); Red Blood Count 3.28 10^6 /uL (4.18-5.48); Red Cell Distribution Width 15 % (10-15); White Blood Count 10.7 10^3/uL (3.5-10.8)
[2019-03-07 10:40] LABS: Activated Partial Thrombo Time 32.6 seconds (26.0-38.0); INR 0.97 (0.82-1.09)
[2019-03-07 10:56] LABS: ALT 5 U/L (7-52); AST 14 U/L (13-39); Albumin 3.5 g/dL (3.2-5.2); Albumin/Globulin Ratio 1.4 (1-3); Alkaline Phosphatase 79 U/L (34-104); Anion Gap 12 mmol/L (2-11); BUN/Creatinine Ratio 10.2 (8-20); Blood Urea Nitrogen 55 mg/dL (6-24); CO2 Carbon Dioxide 23 mmol/L (22-32); Calcium 8.8 mg/dL (8.6-10.3); Chloride 99 mmol/L (101-111); EGFR African American 12.8 (>60); EGFR Non-African American 10.6 (>60); Globulin 2.5 g/dL (2-4); Glucose 116 mg/dL (70-100); Potassium 4.9 mmol/L (3.5-5.0); Sodium 134 mmol/L (135-145)
[2019-03-07 11:12] LABS: Troponin I 0.06 ng/mL (<0.04)
--- NOTE | 2019-03-07 12:58 | HP ---
ADDENDUM TO HISTORY AND PHYSICAL DATE OF ADMISSION: 03/07/2019. CHIEF COMPLAINT: Pain and swelling of the right arm. HISTORY OF PRESENT ILLNESS: The patient is a 68-year-old male with end-stage renal disease who was started on hemodialysis via a tunneled catheter acutely placed at [facility]. He was then referred to this hospital because of malfunctioning of the catheter. This was replaced and he was electively scheduled for an arteriovenous fistula which was done between the upper cephalic vein and the brachial artery. The procedure was uneventful, but in the postoperative period, this patient started to have edema of the right arm. He did have at the time the catheter placed on the right subclavian and it was felt that there was outflow obstruction. For this reason, the catheter was removed and a new catheter was placed on the left internal jugular. The patient in the beginning started to have decrease of the edema and the fistula persisted open, but he states that the edema went down significantly in the last few weeks, but started to have edema with pain on the right arm, signs that there may be a central venous obstruction or stenosis. For this reason, the patient is being admitted to ligate the AV fistula, likely perform an angiogram and likely replace the left internal jugular catheter in order to avoid problems for the future graft that is going to be placed on the left arm. The patient, other than the pain, appears to be stable. PHYSICAL EXAMINATION: He is cooperative with the physical examination. Head and neck: There is a left dialysis catheter on the left internal jugular. The right arm is swollen and tender. The fistula is still patent which is palpable. Heart: Regular without murmurs. Lungs: Clear to auscultation bilaterally. PLAN: The plan for now, since the patient cannot tolerate high venous pressure on the right arm, is to ligate the fistula, perform an angiogram of the central venous system, and then plan his future dialysis access. [id number] #: [id number]
[2019-03-07] MEDS ORDERED: Famotidine IV* 10 MG/ML 2 ML (20 mg) IV ONE (13:14)
[2019-03-07] MEDS ORDERED: Buffered Lidocaine 1% SYRIN* 1 ML/SYRINGE INTRADERM ONE (13:14)
[2019-03-07] MEDS ORDERED: fentaNYL* 50 MCG/ML 2 ML VIAL (100 MCG VIAL) IV PRN ×2 (13:17→18:16)
[2019-03-07] MEDS ORDERED: DiMENhydriNATE IV* 50 MG/ML VIAL IV PUSH PRN (13:17)
[2019-03-07] MEDS ORDERED: Naloxone* 0.4 MG/ML 1 ML VIAL IV PRN ×2 (13:17→18:16)
[2019-03-07] MEDS ORDERED: oxyCODONE/Acetamin 5/325 MG* TAB PO PRN (13:17)
[2019-03-07] MEDS ORDERED: HYDROmorphone INJ1* 1 MG/ML SYRINGE IV PRN (13:17)
[2019-03-07] MEDS ORDERED: PROCHLORPERAZINE INJ 5 MG/ML 2 ML VIAL IV PRN (13:17)
[2019-03-07] MEDS ORDERED: Famotidine IV* 10 MG/ML 2 ML (20 mg) ONE (13:19)
[2019-03-07] MEDS ORDERED: Lactated Ringers 1000 ML Bag* 1,000 ML IV SCH (14:00)
[2019-03-07] MEDS ORDERED: NS 0.45% 1000 ML BAG* 1,000 ML IV SCH (14:00)
[2019-03-07] MEDS ORDERED: Heparin VIAL(*) 5000 UNITS/ML VIAL (FIVE THOUSAND) ONE ×2 (14:43→15:44)
[2019-03-07] MEDS ORDERED: ceFAZolin 2 GM in NS PREMIX(*) 2 GM/100 ML BAG IVPB ONE (14:45)
[2019-03-07] MEDS ORDERED: Iohexol 180 (CONTRAST) 10 ML SDV IV ONE ×3 (14:48→17:19)
[2019-03-07] MEDS ORDERED: Propofol* 10 MG/ML 20 ML BTL ONE ×3 (14:51→16:59)
[2019-03-07] MEDS ORDERED: Midazolam* 1 MG/ML 5 ML VIAL (5 MG) ONE (14:51)
[2019-03-07] MEDS ORDERED: Ondansetron INJ* 2 MG/ML VIAL ONE (14:51)
[2019-03-07] MEDS ORDERED: Lidocaine 2% PF * 5 ML VIAL ONE (14:51)
[2019-03-07] MEDS ORDERED: fentaNYL* 50 MCG/ML 2 ML VIAL (100 MCG VIAL) ONE (14:51)
[2019-03-07] MEDS ORDERED: Dexamethasone IV* 4 MG/ML 1 ML (4 MG) ONE (14:51)
[2019-03-07] MEDS ORDERED: Lidocaine 1% INJ* 10 MG/ML 30 ML SDV ONE (15:35)
[2019-03-07] MEDS ORDERED: Heparin 2 UNITS/ML IVPREMIX* 1,000 ML IV ONE (15:44)
[2019-03-07] MEDS ORDERED: Ondansetron INJ* 2 MG/ML VIAL IV PRN (18:16)
[2019-03-07 18:58] VITALS: BP 140/72
--- NOTE | 2019-03-07 23:53 | OP ---
DATE OF OPERATION: 03/07/19 - [facility] DATE OF : 48 SURGEON: Elías Manuel MD DIRECTOR OF COLLECTIONS AND ARCHIVES: Leti Mcfarlane NP ANESTHESIA: Local plus MAC. PRE-OP DIAGNOSIS: Swollen right arm, status post brachiocephalic arteriovenous fistula, likely secondary to central venous stenosis. POST-OP DIAGNOSIS: Swollen right arm, status post brachiocephalic arteriovenous fistula, likely secondary to central venous stenosis secondary to stenosis of the right subclavian vein. OPERATIVE PROCEDURES: 1. Right arteriovenous fistula angiogram with balloon angioplasty of the right subclavian vein. 2. Placement of right internal jugular tunnel dialysis catheter in preparation for dialysis graft placement on the left arm. 3. Removal of left internal jugular dialysis catheter. 4. Ligation of brachiocephalic arteriovenous fistula. ESTIMATED BLOOD LOSS: Approximately 40 cc. INDICATIONS: The patient is a 68-year-old male with end-stage renal disease that was acutely started on hemodialysis via a right subclavian vein catheter placed at [facility]. At the beginning, this malfunctioned, needed to be replaced, and he was then electively scheduled for an arteriovenous fistula of the right arm since the patient had adequate vein for fistula first. Subsequent to the fistula, the patient started to develop edema of the right arm. It was felt that this was related to the hemodialysis catheter being present in the subclavian vein and this was removed and replaced for a left internal jugular hemodialysis catheter. However, the patient although after a slight improvement, continued to have edema and pain in the arm and hand and for this reason, it was felt that likely he had a severe tight stenosis or complete occlusion of the subclavian vein. For this reason, the patient was brought in to the operating room for an angiogram of the right arm arteriovenous fistula. FINDINGS: Right subclavian vein stenosis at the junction with the right brachiocephalic and proximal subclavian vein. DESCRIPTION OF PROCEDURE: The patient was taken to the operating room after proper identification of patient, site of surgery, and proper markings. The patient was placed in a supine position in the operating room. He received preoperative antibiotics. He was prepped and draped in the usual sterile fashion and exposing the right arm and the upper chest and neck areas bilaterally. After this was done and proper time -out, we then proceeded to access the brachiocephalic fistula on the right arm with micropuncture kit using a 5-Tongan catheter. This was accessed and we proceeded to inject contrast to do an angiography, which revealed stenosis of the proximal subclavian vein up to the junction with the brachiocephalic. An attempt was made to traverse it with a wire, which preferentially will go into branches. We proceeded to advance a Willard 5-Tongan catheter and the 0.035 Glidewire was then advanced into the superior vena cava. After this was done, the Manfred catheter was removed and we proceeded to perform another preangiography DSA and once this was done, we then proceeded to advance a Batchelor 6 mm 50 mm long balloon over the wire and proceeded to dilate the different areas. There was very mild narrowing noted after inflating the balloon and minimal effacement, but post balloon dilatation showed improved flow into the superior vena cava. We then proceeded to advance with 8 mm balloon angioplasty, Batchelor 40 mm long over the wire in the same manner, insufflating the balloon up through the nominal pressure 8, maximum 10 atmosphere. A waist was noted in different locations. The balloon was left there for approximately 30 seconds and then deflated and removed. An angiogram revealed again some improvement but minimal. We then proceeded to advance a10- mm diameter Batchelor balloon angioplasty catheter 40 mm long and proceeded to perform an angioplasty. Again, minimal improvement was noted, likely secondary to recoil of severe central stenosis. It was felt that placing a stent in this area would chcf the internal jugular and reduce the chances for the patient of having other alternatives to hemodialysis. It was felt that then this fistula was pressurizing the venous system and producing the edema and that even though the mild improvement in the patency of the subclavian vein would likely end up in a complete stenosis and the fistula would not be useful. At this point, it was then decided that we would establish access in the right internal jugular vein with a tunneled dialysis catheter and removed the left internal jugular dialysis catheter because it was located into the innominate vein, which in order to avoid central stenosis of the left side. The plan in the future is to place a dialysis graft on the left arm, therefore removing any possible foreign body to avoid stenosis of the left innominate subclavian and internal jugular for future use. During the placement, immediately after the placement of the right internal jugular dialysis catheter, which was done in a standard fashion, first we accessed the internal jugular under ultrasound guidance. An 0.035 guidewire was then advanced into the superior vena cava. An incision was made at the base of the right side of the neck and we proceeded to do proper measurement so the tip will be in the right atrium. We proceeded to infiltrate lidocaine 1% on the right side of the chest. An incision with an 11 blade was made in this area and the catheter was tunneled from the chest to the neck incision and the catheter was then parked there. We then proceeded under direct fluoroscopic guidance to dilate the track of the right internal jugular first with the smaller dilator, subsequently with a larger dilator and finally advancing with the introducer sheath under direct fluoroscopic guidance. We then proceeded to remove the introducer in the sheath and proceeded to advance the dialysis catheter into the sheath and into the right internal jugular to the superior vena cava and to the right atrium. The sheath was then split. The Macho cuff was in the right position and we then proceeded to flush and pull back on both ends of the catheter with excellent inflow and back flow. We then proceeded to leave heparin 3 cc in each port of 500 units/cc. After this was done, the patient became unstable. The blood pressure dropped as well as the O2 saturation. It was felt that possibly the patient had a pneumothorax and an immediate chest x-ray on the table revealed that the patient had no pneumothorax and there was no evidence of hemo or pneumomediastinum. Since we had the sheath in the brachiocephalic fistula, we performed a venogram in order to see if there was extravasation in the pericardium or in the vein that was angioplastied before. The final angiogram revealed no extravasation, no hematoma in the mediastinum and at this point after proper ventilation, the patient's saturations and blood pressure improved. Again, there was no evidence of pneumothorax and no evidence of extravasation. It is possible that the patient may have had small pulmonary embolism with desaturation secondary to the angioplasty done earlier. This is in theory. Soon after, the patient recovered blood pressure, saturation and no problems whatsoever. At this point , we proceeded to then remove the left internal jugular dialysis catheter in order to avoid central venous stenosis on the left side. So, the patient can have a planned placement of the dialysis graft on the left arm. We proceeded to then extend the incision around the sheath into the brachiocephalic fistula. We encircled the fistula proximally and distally and ligated it with 2-0 Vicryl suture. The sheath was removed and the incision was closed with an interrupted Prolene suture. A pressure dressing was applied to the right extremity because of the edema. All the incisions were closed and the subcutaneous tissue with 4-0 Vicryl suture and 4-0 Prolene sutures. The catheter had been fixed in place in different points on the right side of the chest with 3-0 Prolene suture. At the end of the procedure, the patient was taken to recovery room, alert, responsive with excellent saturation and normal blood pressure. [id number]/[facility] #: [id number]
== END 2019-03-07 12:17 | disposition home or self-care (01) ==
LOC: ED 09:28 → OR 12:17
PROVIDERS: ATTEND Surgery
DX: T82.858A Stenosis of other vascular prosthetic devices, implants and grafts, initial encounter (principal); I87.1 Compression of vein; R60.9 Edema, unspecified; N18.6 End stage renal disease; Z99.2 Dependence on renal dialysis; F17.210 Nicotine dependence, cigarettes, uncomplicated; I25.10 Atherosclerotic heart disease of native coronary artery without angina pectoris; I12.9 Hypertensive chronic kidney disease with stage 1 through stage 4 chronic kidney disease, or unspecified chronic kidney disease; I25.2 Old myocardial infarction
CPT/HCPCS: 36140; 36415; 71045; 75710; 80053; 83605; 84484; 85025; 85610; 85730; 87040; 93005; 99285; C1725; C1750; C1887; J0690; J1100; J1644; J2250; J2270; J2405; J2704; J3010

== ENCOUNTER 2019-03-30 05:42 | Day surgery (SDC) | payer MEDICARE ==
--- NOTE | 2019-03-29 18:17 | HP ---
HISTORY AND PHYSICAL: DATE OF ADMISSION: 03/30/19 CHIEF COMPLAINT: End-stage renal disease. Placement of left brachial graft for hemodialysis. HISTORY OF PRESENT ILLNESS: Mr. French is a patient with history of end-stage renal disease who started on hemodialysis acutely in January 2019. The patient had a tunneled catheter placed on the right subclavian vein at [facility] and was being dialyzed via this catheter. He was then seen and evaluated for placement of a permanent arteriovenous fistula, this was done on 01/31/19. A right brachiocephalic fistula was placed. In the postoperative period, the patient started to have edema of the right arm and this appeared to be related to the presence of the tunneled catheter on the right side. This was then removed and replaced in the left internal jugular. The edema improved, but days later started to have edema of the arm with pain. He was then admitted to the hospital for a fistulogram, which revealed stenosis of the left subclavian vein that was attempted to be balloon angioplasty, which was done at that time; however, it would recoil back. This was located in the central venous system. It was felt that this fistula would not be useful as the patient had significant edema and pain, and there was significant stenosis of the central venous system on the right side. At this point, the fistula was then ligated and the patient is being admitted electively for placement of the left brachial graft since the patient has no [place] veins that are large enough to create a [place] fistula. Prior to this admission, the patient had a CT venogram of the left central venous system in order to make sure that the central venous system on the left side was patent and this is confirmed that there are no stenoses on the CT venogram in the left subclavian, left innominate vein, or left internal jugular. The patient has history of dermatitis, which is generalized and for this reason, the patient is on prednisone. He is currently taking 8 mg of prednisone daily as well as he has been on antiplatelet medication including Plavix, which has made his skin very friable. The Plavix has been stopped for the past 10 days and the prednisone has been reduced as well. The patient understands that the potential complications including, but not exclusive of others such as clotting, bleeding, bruising, hematoma. PAST MEDICAL HISTORY: The patient's past medical history is remarkable for coronary artery disease, peripheral vascular disease, hypertension, end-stage renal disease, contact dermatitis and dermatitis of unknown etiology. The patient has benign prostatic hypertrophy. MEDICATIONS: Include: 1. Amlodipine besylate 5 mg p.o. daily. 2. Aspirin 81 mg p.o. daily. 3. Atenolol 50 mg p.o. daily. 4. Atorvastatin calcium 80 mg p.o. daily. 5. Carvedilol 3.125 mg p.o. daily. 6. Citalopram 40 mg p.o. daily. 7. Finasteride 5 mg p.o. daily. 8. Folic acid 1 mg p.o. daily. 9. Ipratropium bromide/albuterol sulfate 0.5 as needed. 10. Nitroglycerin 0.4 mg sublingual as needed. 11. Oxycodone/acetaminophen 5/325 one tablet p.o. q.6 hours as needed for pain. 12. Pantoprazole 40 mg p.o. daily. 13. Prednisone 8 mg p.o. daily, recently lowered to 4 mg p.o. daily. 14. Ranitidine 300 mg p.o. daily. 15. Sodium bicarb 650 mg tablets 1 tablet p.o. t.i.d. 16. Tamsulosin 0.4 mg p.o. daily. ALLERGIES: Include no known allergies. SOCIAL HISTORY: The patient is retired. He is a smoker and nondrinker. PHYSICAL EXAMINATION GENERAL: The patient is alert and oriented, in no acute distress. VITAL SIGNS: The patient's blood pressure on the right arm is 150/89, on the left arm is 184/96. Height is 72 inches, weight 176 pounds. Pulse of 67, respirations of 18. HEAD AND NECK: Reveals no neck nodes or masses. There is a mild carotid bruit on the left side. There is a tunneled catheter on the right internal jugular. LUNGS: Clear to auscultation bilaterally. HEART: Regular without murmurs. ABDOMEN: Unremarkable. EXTREMITIES: The upper extremity has excellent palpable pulses. There is a small nonhealing ulcer 3 mm in diameter, does not appear to be infected. It appears to be healing well lately. On the right arm, the patient has ecchymoses which are present on both upper extremities and in the chest and any area that the patient happens to bump into. The patient has excellent palpable pulses at the radial both upper extremities. On the left upper extremity, he has a very strong brachial pulse. He has a very strong ulnar and radial pulse. The Adson test is negative. Lower extremity has groin incision from a fem-fem bypass. Lower extremities: The patient has weak palpable distal pulses. Good capillary refill. DIAGNOSTIC IMPRESSION: That of end-stage renal disease with a failed right arteriovenous fistula secondary to the central venous stenosis. The patient is being brought in for placement of a dialysis Allen-José Miguel graft on the left upper arm. The patient understands the potential complications including, but not exclusive of others such as bleeding, hematoma, infection, clotting, upper extremity steal syndrome. The patient understands, agrees, and wishes to proceed. [id number]/CPS #: [id number] JAY
[~2019-03-30 05:42] MED LIST changes: -Famotidine IV* 10 MG/ML 2 ML (20 mg) IV ONE; -Lactated Ringers 1000 ML Bag* 1,000 ML IV SCH; -NS 0.9% 500 ML* 500 ML IV SCH
[2019-03-30] MEDS ORDERED: Famotidine IV* 10 MG/ML 2 ML (20 mg) IV ONE (06:00)
[2019-03-30] MEDS ORDERED: NS 0.45% 1000 ML BAG* 1,000 ML IV SCH (06:00)
[2019-03-30] MEDS ORDERED: Dexamethasone IV* 4 MG/ML 1 ML (4 MG) IV SLOW PU ONE (06:00)
[2019-03-30] MEDS ORDERED: Famotidine IV* 10 MG/ML 2 ML (20 mg) ONE (06:16)
[2019-03-30] MEDS ORDERED: Buffered Lidocaine 1% SYRIN* 1 ML/SYRINGE INTRADERM ONE (06:16)
[2019-03-30] MEDS ORDERED: Dexamethasone IV* 4 MG/ML 1 ML (4 MG) ONE (06:16)
[2019-03-30] MEDS ORDERED: ceFAZolin 2 GM in NS PREMIX(*) 2 GM/100 ML BAG IVPB ONE (06:17)
[2019-03-30] MEDS ORDERED: Midazolam* 1 MG/ML 2 ML VIAL (2 MG) ONE (06:58)
[2019-03-30] MEDS ORDERED: fentaNYL* 50 MCG/ML 2 ML VIAL (100 MCG VIAL) ONE (06:58)
[2019-03-30] MEDS ORDERED: Heparin VIAL(*) 5000 UNITS/ML VIAL (FIVE THOUSAND) ONE (07:10)
[2019-03-30] MEDS ORDERED: Lidocaine 1% INJ* 10 MG/ML 30 ML SDV ONE (07:10)
[2019-03-30] MEDS ORDERED: Heparin 2 UNITS/ML IVPREMIX* 1,000 ML IV ONE (07:10)
[2019-03-30] MEDS ORDERED: Bupivacaine 0.25% W/EPI* 10 ML SDV ONE (07:10)
[2019-03-30] MEDS ORDERED: DiMENhydriNATE IV* 50 MG/ML VIAL IV PUSH PRN (07:13)
[2019-03-30] MEDS ORDERED: Naloxone* 0.4 MG/ML 1 ML VIAL IV PRN (07:13)
[2019-03-30] MEDS ORDERED: fentaNYL* 50 MCG/ML 2 ML VIAL (100 MCG VIAL) IV PRN (07:13)
[2019-03-30] MEDS ORDERED: Propofol* 10 MG/ML 20 ML BTL ONE (07:33)
[2019-03-30] MEDS ORDERED: Lidocaine 2% PF * 5 ML VIAL ONE (07:33)
[2019-03-30] MEDS ORDERED: Remifentanil* 2 MG VIAL ONE (07:54)
[2019-03-30] MEDS ORDERED: Gelfoam 12-7 ADSORBABL SPONGE* 1 EA SPONGE ONE (08:48)
[2019-03-30 10:31] VITALS: BP 142/83
--- NOTE | 2019-03-30 10:35 | OP ---
CC: Dr. Russo * DATE OF OPERATION: 03/30/19 - [facility] DATE OF : 48 SURGEON: Elías Manuel MD TEASEL GIG OPERATOR: Leti Mcfarlane NP ANESTHESIA: Local plus MAC. PRE-OP DIAGNOSIS: End-stage renal disease. POST-OP DIAGNOSIS: End-stage renal disease. OPERATIVE PROCEDURE: Creation of left arteriovenous graft, brachial artery to brachial vein, with [place] Propaten 6 mm graft. ESTIMATED BLOOD LOSS: Less than 50 cc. INDICATIONS: The patient is a 68-year-old male with end-stage renal disease who is undergoing placement of the left brachial graft for dialysis access. DESCRIPTION OF PROCEDURE: The patient was taken to the procedure room. He underwent proper identification of patient, site of surgery. He was then taken to the operating room and placed in a supine position. He received preoperative antibiotics. The left arm was prepped and draped in the usual sterile fashion under sedation. After this was done and after appropriate time-out, we then proceeded to infiltrate lidocaine 1% mixed with Marcaine 0.25% with epinephrine in the medial aspect of the upper left arm. An oblique incision was made in this area. The incision was carried down through the skin, subcutaneous tissue. Bleeders were controlled by electrocoagulation. The neurovascular bundle was then exposed. Care was taken to avoid the nerve. Exposure of the left brachial vein was done. Dissection was carried out and this was then encircled in the vessel loops. After this was done, the brachial artery was as well exposed and encircled in vessel loops. After this was completed, we then proceeded to map out the loop where the graft was going to go and the configuration was inside out, that is, arterial intake on the inside of the loop, venous on the outside of the loop. After this was done, using a [place] curved tunneler, we then proceeded to tunnel the graft under the skin with a counter incision distal to the arm, and after this part was in place, we then proceeded to tunnel from the other end and bring the end of the graft under the skin towards the venous side. The initial tunnel came from the arterial side to the counter incision and then from the venous side to the counter incision creating a complete loop. The edges of the graft were lying smooth together and we then proceeded to give the patient heparin 3000 units. We proceeded to, after 5 minutes, cross- clamp the vein proximally and distally. A venotomy was performed and the opening of the graft was fashioned in an oblique shape using curved Zepeda, and after this was done, the venotomy was performed and we then proceeded to perform an end-to-side anastomosis using 6-0 Prolene in a parachute technique. After this was completed, we then proceeded to flush the graft with heparinized saline. Good flow was noted. We then proceeded to cross-clamp the limb of the graft towards the venous side and then prepare for the arterial anastomosis. We proceeded to cross-clamp the brachial artery and the inside loop of the graft was then bevelled to be anastomosed using straight Zepeda scissors. After this was done, an arteriotomy was performed and the incision was extended with Lake scissors, and we then proceeded to perform an end-to-side anastomosis using 6-0 Prolene in a parachute technique. Once this was completed, the venous clamps were released, then the distal arterial, then the proximal arterial. There was excellent thrill. Oozing from needle points were controlled with Surgicel and Gelfoam, and after this was done and no bleeding was noted, then we proceeded to close the incisions. The counter incision was closed with subcutaneous 4-0 Vicryl and the skin was closed with interrupted 5- 0 Prolene. The medial incision was closed in the same manner, subcutaneous tissue with interrupted 4-0 Vicryl suture and the skin with interrupted 5-0 Prolene. The patient has a skin condition in which the skin is very friable. He does have a significant amount of ecchymosis. However, at the end of the procedure, no hematomas, no bleedings were noted. He did, however, before the procedure started have ecchymosis in the area of the entire upper left arm and right arm as well. At the end of the procedure, the patient had excellent thrill, he had a palpable radial and ulnar pulse, good capillary refill in the fingers. A dressing was applied over the incisions with Xeroform and 4x4's avoiding putting Steri-Strips or any tape on the skin. The patient tolerated the procedure well and he was taken in good condition to the recovery room. [id number]/[facility] #: [id number] JAY
== END 2019-03-30 10:45 | disposition home or self-care (01) ==
LOC: OR 05:42
PROVIDERS: ATTEND Surgery
DX: I12.9 Hypertensive chronic kidney disease with stage 1 through stage 4 chronic kidney disease, or unspecified chronic kidney disease (principal); N18.6 End stage renal disease; I25.10 Atherosclerotic heart disease of native coronary artery without angina pectoris; I73.9 Peripheral vascular disease, unspecified; Z79.01 Long term (current) use of anticoagulants; N40.0 Benign prostatic hyperplasia without lower urinary tract symptoms; Z72.0 Tobacco use; Z95.5 Presence of coronary angioplasty implant and graft; M19.90 Unspecified osteoarthritis, unspecified site; D64.9 Anemia, unspecified; Z99.2 Dependence on renal dialysis
CPT/HCPCS: A9270-GY; C1768; J0690; J1100; J1644; J2250; J2704; J3010

== ENCOUNTER 2019-04-12 10:10 | Emergency (ER) | payer MEDICARE ==
--- NOTE | 2019-04-12 10:41 | ED ---
Complex/Multi-Sys Presentation - HPI Summary HPI Summary: This pt is a 68 y/o male, with hx ESRD on dialysis, presenting to [facility] c/o feeling "sick" and multiple complaints for about 1 week. Pt reports he gets dialysis through his chest port on Tuesdays, , and Saturdays, and has been on dialysis for 4 months. His last dialysis was on Thursday04/09/19. Pt states his headache began first, described as frontal headache that is intermittent and alleviated with Tylenol. No aggravating factors. Pt notes he has nausea but does not think is associated with his headache. He reports he does not normally gets headaches. Pt also reports feeling off-balance "like I'm going to fall on my face" when ambulating because he can't walk secondary to fatigue and weakness. He notes he has abd pain on bilateral sides with some diarrhea. Pt is still making urine occasionally. He has been feeling chills but denies fever. Additionally reports coughing for the past 2 weeks, sometimes productive, with SOB. He is still smoking 1 PPD for a long time now. PMHx includes HTN, ESRD, cardiac stents x3 in May 2018. Pt states he presented with chest pain when he had cardiac stents placed. He currently denies any chest pain. Denies recent hospitalization in the past 6 months. He denies sick contacts at home. Denies runny nose or sore throat. His medications include anticoagulants, Plavix, and baby aspirin. - History Of Current Complaint Hx Obtained From: Patient Onset/Duration: Lasting Days, Still Present Timing: Days Severity Currently: Moderate Aggravating Factor(s): nothing Alleviating Factor(s): nothing Associated Signs And Symptoms: Positive: Dizziness, Weakness, Headache, SOB, Cough, Nausea, Diarrhea, Abdominal Pain. Negative: Chest Pain, Fever Related History: Other - on dialysis, last one was on Thursday (04/09) - Allergies/Home Medications Allergies/Adverse Reactions: Allergies Allergy/AdvReac Type Severity Reaction Status Date / Time No Known Drug Allergies Allergy Unknown See Comment Verified 04/12/19 10:14 PMH/Surg Hx/FS Hx/Imm Hx Endocrine/Hematology History: Reports: Hx Anemia Denies: Hx Bone Marrow Disease, Hx Diabetes, Hx Sickle Cell Disease, Hx Thyroid Disease Cardiovascular History: Reports: Hx Congestive Heart Failure, Hx Coronary Artery Disease - 3 STENTS-05/2019, Hx Hypercholesterolemia, Hx Hypertension, Hx Myocardial Infarction, Hx Peripheral Vascular Disease - Claudication,Fem-Fem bypass,2 stents left leg, stent right kidney Denies: Hx Pacemaker/ICD, Other Cardiovascular Problems/Disorders Respiratory History: Reports: Hx Chronic Obstructive Pulmonary Disease (COPD) - borderline, Other Respiratory Problems/Disorders - 50 pack year smoker, current 1PPD Denies: Hx Asthma GI History: Reports: Hx Gastroesophageal Reflux Disease Denies: Other GI Disorders History: Reports: Hx Dialysis, Hx Renal Disease, Other Problems/Disorders - Enlarged prostate, Renal artery stenosis Musculoskeletal History: Reports: Hx Arthritis - Neck and back Denies: Other Musculoskeletal History Sensory History: Reports: Hx Contacts or Glasses - READING GLASSES Denies: Hx Hearing Aid Opthamlomology History: Reports: Hx Contacts or Glasses - READING GLASSES Neurological History: Reports: Other Neuro Impairments/Disorders - Numbness and tingling in bilateral legs Psychiatric History: Reports: Hx Anxiety - ON MEDICATION FOR, Hx Depression - Surgical History Surgery Procedure, Year, and Place: cardiac stents-[facility]. RUE fistula placement by Dr. Manuel in February 2019. 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 Negative: Fever Negative: Sore Throat, Nasal Discharge Negative: Chest Pain Positive: Shortness Of Breath, Cough Positive: Abdominal Pain, Diarrhea, Nausea Neurological: Other - POSITIVE: dizziness Positive: Headache, Weakness All Other Systems Reviewed And Are Negative: Yes Physical Exam - Summary Physical Exam Summary: Constitutional: Appears older than stated age, Alert. (-) Distressed Skin: Warm, Dry HENT: Normocephalic; Atraumatic Eyes: Conjunctiva normal Neck: Musculoskeletal ROM normal neck. (-) JVD, (-) Nuchal rigidity Cardio: Rhythm regular, rate normal, Heart sounds normal; Intact distal pulses; Radial pulses are 2+ and symmetric. (-) Murmur Pulmonary/Chest wall: Effort normal. (-) Respiratory distress, (-) Wheezes, (-) Rales. Right sided chest port - clean, dry, and intact. Abd: Soft. (-) Tenderness, (-) Distension, (-) Guarding, (-) Rebound Musculoskeletal: Bilateral upper extremities fistulas. Lymph: (-) Cervical adenopathy Neuro: Alert, PERRL, Oriented x3, Strength normal, Cranial nerves II-XII are grossly intact. SILT, Strength 5/5 BUE and BLE, (-) Dysmetria, (-) Nystagmus, ambulates w steady gait. Psych: Mood and affect Normal Triage Information Reviewed: Yes Vital Signs On Initial Exam: Initial Vitals Temp Pulse Resp BP Pulse Ox 98.2 F 83 16 129/70 96 04/12/19 10:12 04/12/19 10:12 04/12/19 10:12 04/12/19 10:12 04/12/19 10:12 Vital Signs Reviewed: Yes Diagnostics - Vital Signs Vital Signs Temp Pulse Resp BP Pulse Ox 04/12/19 10:12 98.2 F 83 16 129/70 96 - Laboratory Result Diagrams: 04/12/19 10:41 04/12/19 10:41 Lab Statement: Any lab studies that have been ordered have been reviewed, and results considered in the medical decision making process. - Radiology Chest XR Radiology Interpretation Completed By: Radiologist Summary of Radiographic Findings: IMPRESSION: Findings consistent with COPD, no evidence for acute disease. Dr. Carbone has reviewed this report. - CT Brain CT CT Interpretation Completed By: Radiologist Summary of CT Findings: IMPRESSION: 1. No acute intracranial abnormality. 2. Either an old lacunar infarct or expanded perivascular space in the head of the right caudate. 3. Moderate chronic small vessel scanner disease is likely. Dr. Carbone has reviewed this report. - EKG 11:03 Cardiac Rate: NL - at 81 bpm EKG Rhythm: Sinus Rhythm Summary of EKG Findings: Probable left ventricular hypertrophy. Borderline prolonged QT interval. Re-Evaluation - Re-Evaluation First Eval Re-Evaluation Time: 11:25 Comment: Chest x-ray consistent with COPD, will give noted. Troponin 0.07, no EKG changes suspect secondary to ESRD will recheck. Chronic low leukocyte count Second Eval Re-Evaluation Time: 12:10 Comment: Patient is sleeping. Plan to repeat troponin. Third Eval Re-Evaluation Time: 14:11 Change: Improved Comment: Repeat troponin is 0.07. Pt is feeling better. Pt will be discharged home. He will get scheduled dialysis as an outpatient. Complex Multi-Symp Course/Dx Course Of Treatment: 68-year-old male with history of ESRD dialysis Thursday, last dialyzed Thursday, coronary artery disease, ID status post 3 stents, hypertension who presents with generalized fatigue nausea and headache. - Physical exam notable for an elderly male no acute distress. Abdomen benign. Neuro exam unremarkable. Will check a head CT given reported headache nausea and fatigue, as well as chest x-ray to assess for pneumonia given cough. Appendicitis - no RLQ tenderness, no white count or fevers, low suspicion. Gall bladder pathology - no RUQ TTP, no history of gallstones, LFT and bili wnl, low suspicion. Pancreatitis - normal lipase. PUD - no hx of PUD , H pylori, or NSAID use low suspicion. GERD - no burning epigastric pain, no nighttime cough, no history of GERD in past. ACS- EKG non-ischemic and troponin baseline. UTI - patient only makes miminal urine, unable to provide sample. - Diagnoses Provider Diagnoses: Cough, Nausea, Headache Discharge - Sign-Out/Discharge Documenting (check all that apply): Patient Departure - Discharge home Patient Received Moderate/Deep Sedation with Procedure: No - Discharge Plan Condition: Stable Disposition: HOME Patient Education Materials: Acute Nausea and Vomiting (ED), Acute Cough (ED), General Headache (ED) Referrals: Domenico COKER,Greg Ibrahim [Primary Care Provider] - Additional Instructions: You were seen in the emergency department for headache and feeling unwell. Your head CT did not show any abnormalities, your chest x-ray did not show pneumonia. Your labs were stable If any studies were not completed at the time of discharge you will be called with the relevant results. Please follow up with your primary care doctor in next 2-3 days and return to emergency department for worsening or concerning symptoms. - Billing Disposition and Condition Condition: STABLE Disposition: Home - Attestation Statements Document Initiated by Rowanibe: Yes Documenting Scribe: Tika Burger Provider For Whom Scribe is Documenting (Include Credential): Rich Carbone MD Scribe Attestation: I, Tika Burger, scribed for Rich Carbone MD on 04/12/19 at 1648. Scribe Documentation Reviewed: Yes Provider Attestation: The documentation as recorded by the Tika rodgers accurately reflects the service I personally performed and the decisions made by me, Rich Carbone MD Status of Scribe Document: Viewed
[2019-04-12] MEDS ORDERED: Acetaminophen TAB* 325 MG PO ONE (10:45)
[2019-04-12] MEDS ORDERED: Ondansetron ODT TAB* 4 MG PO ONE (10:46)
[2019-04-12 10:57] LABS: Hematocrit 33 % (42-52); Hemoglobin 11.2 g/dL (14.0-18.0); Mean Corpuscular HGB Conc 33 g/dL (31-36); Mean Corpuscular Hemoglobin 33 pg (27-31); Mean Corpuscular Volume 100 fL (80-94); Mean Platelet Volume 10.4 fL (7.4-10.4); Platelet Count 81 10^3/uL (150-450); Red Blood Count 3.35 10^6 /uL (4.18-5.48); Red Cell Distribution Width 19 % (10-15); White Blood Count 3.8 10^3/uL (3.5-10.8)
[2019-04-12 11:09] LABS: ALT 12 U/L (7-52); AST 24 U/L (13-39); Albumin 3.3 g/dL (3.2-5.2); Albumin/Globulin Ratio 1.4 (1-3); Alkaline Phosphatase 96 U/L (34-104); Anion Gap 12 mmol/L (2-11); BUN/Creatinine Ratio 7.1 (8-20); Blood Urea Nitrogen 59 mg/dL (6-24); CO2 Carbon Dioxide 21 mmol/L (22-32); Calcium 8.4 mg/dL (8.6-10.3); Chloride 103 mmol/L (101-111); EGFR African American 7.7 (>60); EGFR Non-African American 6.4 (>60); Globulin 2.4 g/dL (2-4); Glucose 107 mg/dL (70-100); Potassium 4.8 mmol/L (3.5-5.0); Sodium 136 mmol/L (135-145); Total Protein 5.7 g/dL (6.4-8.9)
[2019-04-12 11:12] LABS: Troponin I 0.07 ng/mL (<0.04)
[2019-04-12] MEDS ORDERED: Albuterol/Ipratropium NEB.SOL* Albuterol 2.5 MG/Ipratropium 0.5 MG 3 ML INH ONE (11:27)
[2019-04-12 11:31] LABS: ABS Eosinophils 0.3 10^3/ul (0-0.6); ABS Lymphocytes 0.5 10^3/ul (1.0-4.8); ABS Monocytes 0.6 10^3/ul (0-0.8); ABS Neutrophils 2.4 10^3/ul (1.5-7.7); Eosinophil % 7.5 %; Lymphocyte % 14.2 %; Nucleated Red Blood Cells % 0.1
[2019-04-12 11:34] LABS: Microcytosis 1+
[2019-04-12 11:59] LABS: INR 0.94 (0.82-1.09)
[2019-04-12 13:57] LABS: Troponin I 0.07 ng/mL (<0.04)
[2019-04-12 14:21] VITALS: BP 158/74
== END 2019-04-12 14:24 | disposition home or self-care (01) ==
LOC: ED 10:10
DX: R05 Cough (principal); R11.0 Nausea; R51 Headache; R42 Dizziness and giddiness; R53.1 Weakness; R06.02 Shortness of breath; R53.83 Other fatigue; R19.7 Diarrhea, unspecified; I13.2 Hypertensive heart and chronic kidney disease with heart failure and with stage 5 chronic kidney disease, or end stage renal disease; N18.6 End stage renal disease; Z99.2 Dependence on renal dialysis; I25.2 Old myocardial infarction; J44.9 Chronic obstructive pulmonary disease, unspecified; F41.9 Anxiety disorder, unspecified; Z79.01 Long term (current) use of anticoagulants; Z79.82 Long term (current) use of aspirin; Z95.5 Presence of coronary angioplasty implant and graft; F17.210 Nicotine dependence, cigarettes, uncomplicated
CPT/HCPCS: 36415; 70450; 71046; 80053; 83605; 83690; 84484; 85025; 85060; 85610; 93005; 99283; A9270-GY

== ENCOUNTER 2019-12-05 05:29 | Day surgery (SDC) | payer MEDICARE ==
--- NOTE | 2019-11-29 18:16 | HP ---
HISTORY AND PHYSICAL: DATE OF ADMISSION: 12/05/19. CHIEF COMPLAINT: Malfunctioning left brachial graft for dialysis. HISTORY OF PRESENT ILLNESS: Mr. French is a 69-year-old male with end-stage renal disease who had been going to hemodialysis via left brachial Lykens-José Miguel graft that was implanted over a year ago. Recently, the dialysis unit reported to have difficulty accessing the graft and the patient was sent for an ultrasound of the graft that revealed high peak systolic velocities in the 400 range towards the venous anastomosis, making this highly likely the result of stenosis at the outflow with the potential of failure of the graft. For this reason, the patient has been admitted for an angiogram, possible balloon angioplasty. PAST MEDICAL HISTORY: The patient's past medical history is remarkable for coronary artery disease, peripheral vascular disease, hypertension, end-stage renal disease, contact dermatitis of unknown etiology, BPH, history of COPD, history of arthritis, back problems, kidney disease, history of kidney surgery. MEDICATIONS: The patient's current medications include: 1. Aspirin 81 mg p.o. daily. 2. Atenolol 50 mg p.o. daily. 3. Atorvastatin 80 mg p.o. daily. 4. Carvedilol 3.125 mg p.o. daily. 5. Citalopram 40 mg p.o. daily. 6. Finasteride 5 mg p.o. daily. 7. Folic acid 1 mg p.o. daily. 8. Ipratropium bromide/albuterol sulfate 1 puff b.i.d. 9. Nitroglycerin 0.4 mg under the tongue as needed. 10. Pantoprazole 40 mg p.o. daily. 11. Ranitidine 300 mg p.o. daily. 12. Sodium bicarb 650 mg p.o. daily. 13. Tamsulosin 0.4 mg p.o. daily. 14. Prednisone 5 mg p.o. daily. ALLERGIES: The patient has no known allergies. FAMILY HISTORY: Both mother and father are . There is history of heart disease, stroke, high blood pressure, cancer, and diabetes. SOCIAL HISTORY: The patient is retired. Smokes approximately a pack a day and he has been doing so for several years. He is a nondrinker. REVIEW OF SYSTEMS: The patient's review of systems is contributory for respiratory, arthritis; kidney, end-stage renal disease; musculoskeletal, arthritis; skin, dermatitis; ENT, hearing loss. PHYSICAL EXAMINATION GENERAL: The patient in no acute distress. HEAD AND NECK: Reveals no neck nodes or masses. LUNGS: Clear to auscultation bilaterally. HEART: Regular without murmurs. ABDOMEN: No pulsatile masses. EXTREMITIES: Upper extremities, there is a left brachial graft with bruit and palpable pulse. Excellent palpable pulses on both upper extremities. The patient used to have edema on the right arm. this has completely resolved. Lower extremities, no evidence of edema. Distal pulses are palpable. DIAGNOSTIC IMPRESSION: Malfunctioning left brachial dialysis graft. PLAN: The plan is to proceed with angiography of the left brachial graft with possible angioplasty. The patient understands the potential complications including, but not exclusive of others such as recurrence, occlusion, bleeding, bruising, pain, infection. The patient understands, agrees, and wishes to proceed. [id number]/CPS #: [id number] MTDD
[2019-12-05] MEDS ORDERED: ceFAZolin 2 GM PREMIX in ORs 2 GM/50 ML BAG ONE (06:06)
[2019-12-05] MEDS ORDERED: Buffered Lidocaine 1% SYRIN* 1 ML/SYRINGE INTRADERM ONE (06:06)
[2019-12-05] MEDS ORDERED: Heparin VIAL(*) 5000 UNITS/ML VIAL (FIVE THOUSAND) ONE (07:12)
[2019-12-05] MEDS ORDERED: Heparin 2 UNITS/ML IVPREMIX* 1,000 ML IV ONE (07:13)
[2019-12-05] MEDS ORDERED: Lidocaine 1% INJ* 10 MG/ML 30 ML SDV ONE (07:13)
[2019-12-05] MEDS ORDERED: Iohexol 180 (CONTRAST) 10 ML SDV IV ONE (07:13)
[2019-12-05] MEDS ORDERED: Propofol* 10 MG/ML 20 ML BTL ONE (07:29)
[2019-12-05] MEDS ORDERED: Midazolam* 1 MG/ML 2 ML VIAL (2 MG) ONE (07:38)
[2019-12-05] MEDS ORDERED: hydrALAZINE IV* 20 MG/ML VIAL ONE (08:29)
[2019-12-05] MEDS ORDERED: Naloxone* 0.4 MG/ML 1 ML VIAL IV PRN (08:58)
[2019-12-05] MEDS ORDERED: Ondansetron INJ* 2 MG/ML VIAL ONE (09:12)
[2019-12-05] MEDS ORDERED: Dexamethasone IV* 4 MG/ML 1 ML (4 MG) ONE (09:16)
[2019-12-05] MEDS ORDERED: Dexamethasone IV* 4 MG/ML 1 ML (4 MG) IV SLOW PU ONE (09:17)
[2019-12-05 10:27] VITALS: BP 175/75
--- NOTE | 2019-12-05 11:10 | OP ---
DATE OF OPERATION: 12/05/19 [facility] DATE OF : 48 SURGEON: Dr. Manuel. GENETIC ENGINEER: Leti Mcfarlane NP. ANESTHESIA: Local plus MAC. PRE-OP DIAGNOSIS: Left brachial graft stenosis. POST-OP DIAGNOSIS: Left brachial graft stenosis. OPERATIVE PROCEDURE: Left brachial graft angiogram with balloon angioplasty percutaneously. ESTIMATED BLOOD LOSS: Approximately 20 cc. TOTAL CONTRAST USED: 50 cc. DESCRIPTION OF PROCEDURE: The patient was taken to the procedure room. He was placed in the supine position on the x-ray table. He was prepped and draped in the usual sterile fashion. He received preoperative antibiotics, and after proper identification of the patient, side of surgery, and proper time-out under sedation, lidocaine 1% was used to infiltrate the more distal part of the loop graft towards the elbow. An 18-gauge Angiocath was used to cannulate the graft with brisk bleeding. This was then flushed, and we then proceeded to perform an angiogram towards the venous anastomosis. Using DSA, we proceeded to visualize the anastomosis that appeared to have approximately 50% stenosis with poststenotic dilatation. The flow through the axillary and subclavian vein appeared to be excellent without any evidence of central venous stenosis. We then proceeded to advance 0.038 guidewire via the Angiocath, and after this, the Angiocath was removed and a 6-Brazilian sheath was advanced over the wire inside the graft. After this was done, the introducer was removed, the sheath was left in place which was then flushed with saline. We then proceeded to perform an angiogram for treatment, and once the angiogram was done, we then proceeded to advance an 8 mm x 40 mm long Kite balloon angioplasty over the wire. It was then positioned at the site of the venous anastomosis, and this was then dilated up to 18 atmospheres erasing completely the stenosis. The balloon was left inflated for 1 minute, and after this was done, another area of stenosis in the body of the graft was identified. The balloon angioplasty catheter was then pulled down and inflated at this level again for 1 minute up to a pressure of 14 atmospheres. This was left inflated for 1 minute, and after this was done, it was then removed. A final angiogram towards the venous anastomosis was performed, which appeared to be free flowing without any stenotic areas. After this was done, we then proceeded to apply pressure by hand on the outflow and inject an angiogram to see the remaining part of the graft and the arterial anastomosis, which appeared to be completely unremarkable. Excellent diameter at the arterial anastomosis with excellent inflow from the brachial artery. At this point, it was felt the procedure was finished. We proceeded to remove the wire, placed a [id number] suture at the entrance of the sheath and the sheath was then pulled back and tied over it. At the end of the procedure, no bleeding was noted. Steri-Strips were applied to the area. The patient tolerated the procedure well, and he was taken in good condition to the recovery room. [id number] #: [id number]
== END 2019-12-05 11:00 | disposition home or self-care (01) ==
LOC: OR 05:29
PROVIDERS: ATTEND Surgery
DX: T82.858A Stenosis of other vascular prosthetic devices, implants and grafts, initial encounter (principal); N18.6 End stage renal disease; Z99.2 Dependence on renal dialysis; I25.10 Atherosclerotic heart disease of native coronary artery without angina pectoris; I73.9 Peripheral vascular disease, unspecified; I12.0 Hypertensive chronic kidney disease with stage 5 chronic kidney disease or end stage renal disease; J44.9 Chronic obstructive pulmonary disease, unspecified; N40.0 Benign prostatic hyperplasia without lower urinary tract symptoms; M19.90 Unspecified osteoarthritis, unspecified site; F17.210 Nicotine dependence, cigarettes, uncomplicated; I25.2 Old myocardial infarction; M54.5 Low back pain
CPT/HCPCS: 76000; J0360; J0690; J1100; J1644; J2250; J2405; J2704